=== PATIENT | female | born 1960 | race Caucasian/White ===

== ENCOUNTER → 2017-03-02 | Day surgery (SDC) | payer OTHER ==
[~2017-03-02] MED LIST: Acetaminophen/HYDROcodone 325-5 MG Tab PO PRN; Bacitracin Oint 1 GM U/D Packet ONE; Bacitracin Oint 28.35 GM Tube TOP ONE; Bupivacaine 0.5% 50 ML MDV ONE; Lidocaine 1% with EPINEPHrine 1:100,000 50 ML MDV ONE; Midazolam 1 MG/ML 2 ML SDV ONE; Morphine 2 MG/ML Syringe IVPUSH PRN; Propofol 200 MG/20 ML SDV ONE; Sodium Chloride 0.9% 1,000 ML IV SCH; ceFAZolin 2 GM in Premix Bag 1 BAG IV ONE; ceFAZolin 2 GM in Sodium Chloride 0.9% 50 ML IV ONE; fentaNYL 100 MCG/2 ML SDV ONE
[2017-03-02 17:38] VITALS: BP 126/59
--- NOTE | 2017-03-05 08:43 | OR ---
DATE OF PROCEDURE: 03/02/2017 PROCEDURE: Exploration of traumatic injury, right leg, calf (). FINDINGS: Large amount of fluid collection consistent with old hematoma. PREOPERATIVE DIAGNOSIS: Traumatic injury to right leg requiring evaluation. POSTOPERATIVE DIAGNOSIS: Traumatic injury to right leg requiring evaluation. RISKS: Risks, benefits, alternatives, limitations including, but not limited to infection, bleeding, and chronic wound formation were explained to the patient. PROCEDURE: The patient was placed in supine position. The traumatic entry point was identified and this appeared to be healing well. 1 cm below this, a single mahsa was created in the skin approximately 1 cm size. A Brittani was introduced at this area and this was approximately 11 cm x 8 cm filled with old fluid. This was cultured, suctioned, and aspirated. Suction device was used to remove the remainder of this. The patient had couple of areas of what was mostly likely calcified fat. This was noted within the range of medial to the incision. These were left in place once ischemic. A 10 flat Brian-Timmons was then placed within the cavity itself, was sutured into place and dressings were applied. As far as the entry point of the wound, this was controlled with bacitracin and Xeroform. Dressings were applied. The patient tolerated the procedure well. Duke Walker MD /[id number]
== END ==
LOC: JP.SDS 10:24
PROVIDERS: ATTEND Surgery
DX: S89.91XD Unspecified injury of right lower leg, subsequent encounter (principal); Z88.8 Allergy status to other drugs, medicaments and biological substances
CPT/HCPCS: 20103; 87070; 87075; 87205; A9270; J0690; J2250; J2270; J2704; J3010; J7040; 87077; 87186

== ENCOUNTER 2017-03-30 10:47 | Day surgery (SDC) | payer OTHER ==
[2017-03-30] MEDS ORDERED: Sodium Chloride 0.9% 1,000 ML IV SCH (11:30)
[2017-03-30] MEDS ORDERED: ceFAZolin 2 GM in Sodium Chloride 0.9% 50 ML IV ONE (11:30)
[2017-03-30] MEDS ORDERED: Lidocaine 1% with EPINEPHrine 1:100,000 50 ML MDV ONE (11:56)
[2017-03-30] MEDS ORDERED: Bupivacaine 0.5% 50 ML MDV ONE (11:56)
[2017-03-30] MEDS ORDERED: Propofol 200 MG/20 ML SDV ONE (12:46)
[2017-03-30] MEDS ORDERED: Acetaminophen/HYDROcodone 325-5 MG Tab PO PRN (13:53)
[2017-03-30] MEDS ORDERED: Morphine 2 MG/ML Syringe IV PRN (14:00)
[2017-03-30 14:49] VITALS: BP 145/85
--- NOTE | 2017-03-30 15:04 | OR ---
DATE OF PROCEDURE: 03/30/2017 PROCEDURE: Ultrasound-guided drainage of infected hematoma. COMPLICATIONS: None. 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 ANESTHESIA: MAC/local. INDICATIONS: A pleasant 57-year-old female who has a traumatic injury of her right leg. This was previously drained. The drain was removed, and the patient now has recurrent pain and fever. FINDINGS: Consistent with infected hematoma. RISKS: Risks, benefits, alternatives, and limitations including but not limited to infection, bleeding, and recurrent surgery were explained to the patient, who wished to proceed. PROCEDURE IN DETAIL: The patient was placed in supine position. The right leg was prepped and draped. The skin was anesthetized with lidocaine. Using an 11 megahertz ultrasound probe, the area identified and the 7 cm pocket was identified. An 18-gauge needle was then advanced into this and fluid was drawn and sent for culture. A pigtail catheter was then introduced and was able to be placed on the first pass without difficulty. This was then sutured into place. Prior to this, the cavity was irrigated thoroughly multiple times with normal saline. The patient tolerated the procedure well. Duke Walker MD /[id number]
== END 2017-03-30 15:00 | disposition home or self-care (01) ==
LOC: JP.SDS 10:47
PROVIDERS: ATTEND Surgery
DX: T81.4XXA Infection following a procedure, initial encounter (principal); I10 Essential (primary) hypertension; E03.9 Hypothyroidism, unspecified; E66.9 Obesity, unspecified; Z68.30 Body mass index [BMI] 30.0-30.9, adult; Z98.890 Other specified postprocedural states; Z88.8 Allergy status to other drugs, medicaments and biological substances
CPT/HCPCS: 10030; 76998; 87070; 87075; 87077; 87186; 87205; A9270; J0690; J2270; J2704; J7040; J7050

== ENCOUNTER 2017-08-27 20:46 | Emergency (ER) | payer OTHER ==
[2017-08-27] MEDS ORDERED: LORazepam 0.5 MG Tab PO ONE (20:57)
[2017-08-27 21:44] VITALS: BP 140/63
--- NOTE | 2017-08-27 21:58 | EDM.PDOC ---
ED HPI GENERAL MEDICAL PROBLEM - General Chief Complaint: Cardiovascular Problem Stated Complaint: RACING HEART/HIGH PULSE Time Seen by Provider: 08/27/17 21:58 Source of Information: Reports: Patient History Limitations: Reports: No Limitations - History of Present Illness INITIAL COMMENTS - FREE TEXT/NARRATIVE: pt was lying down and she turned to her rt side. She felt like her heart was rapid and irregular. She then felt very anxious with the rapid heart rate. She was mildly sob. Onset: Today, Sudden Duration: Minutes:, Other ( The episode lasted for about 20-30 minutes. ) Location: Reports: Chest Associated Symptoms: Reports: Weakness, Other ( anxiety with a rapid heart rate. 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: Aspirin, Other (see below) Other Treatments GREEN CHAIN OFFBEARER: lisinopril - Related Data Allergies Allergy/AdvReac Type Severity Reaction Status Date / Time ranitidine HCl [From Zantac] Allergy Severe Difficulty Verified 08/27/17 21:03 Breathing caffeine Allergy Tachycardia Verified 08/27/17 21:03 Home Meds: Home Meds Soy Isoflavone [Soy Isoflavones] 40 mg PO DAILY 04/12/15 [History] [place] Wort 150 mg PO DAILY 04/12/15 [History] Aspirin [Halfprin] 81 mg PO DAILY 03/02/17 [History] Hydrochlorothiazide 25 mg PO DAILY 03/02/17 [History] Lisinopril 10 mg PO DAILY 04/09/17 [History] Levothyroxine 175 mcg PO DAILY 08/27/17 [History] Past Medical History HEENT History: Reports: Impaired Vision Cardiovascular History: Reports: Heart Murmur, Hypertension Respiratory History: Reports: Bronchitis, Recurrent, Pneumonia, Recurrent Gastrointestinal History: Reports: Other (See Below) Other Gastrointestinal History: "gallbladder attacks" 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 Musculoskeletal History: Reports: Osteoporosis Psychiatric History: Reports: Panic Attack Endocrine/Metabolic History: Reports: Hypothyroidism, Obesity/BMI 30+ Hematologic History: Reports: None Immunologic History: Reports: None Oncologic (Cancer) History: Reports: None Dermatologic History: Reports: Psoriasis - Infectious Disease History Infectious Disease History: Reports: Chicken Pox - Past Surgical History Head Surgeries/Procedures: Reports: None HEENT Surgical History: Reports: Oral Surgery Cardiovascular Surgical History: Reports: None Respiratory Surgical History: Reports: None GI Surgical History: Reports: None Female Surgical History: Reports: None Endocrine Surgical History: Reports: None Other Endocrine Surgeries/Procedures: radiation via pill form february 2015 Musculoskeletal Surgical History: Reports: Other (See Below) Other Musculoskeletal Surgeries/Procedures:: arthritis in right knee and hips Oncologic Surgical History: Reports: None Dermatological Surgical History: Reports: None Social & Family History - Family History Family Medical History: Noncontributory - Tobacco Use Smoking Status *Q: Never Smoker Second Hand Smoke Exposure: No - Caffeine Use Caffeine Use: Reports: None - Alcohol Use Days Per Week of Alcohol Use: 0 - Recreational Drug Use Recreational Drug Use: No ED ROS GENERAL - Review of Systems Review Of Systems: See Below Constitutional: Reports: No Symptoms HEENT: Reports: No Symptoms Respiratory: Reports: Shortness of Breath Cardiovascular: Reports: Palpitations, Other (pt felt like her heart was rapid and irregular. ) GI/Abdominal: Reports: No Symptoms : Reports: No Symptoms Musculoskeletal: Reports: No Symptoms Skin: Reports: No Symptoms ED EXAM, GENERAL - Physical Exam Exam: See Below Free Text/Narrative:: pt arrived feeling anxious because she had a rapid irregular heartrate at home. Exam Limited By: No Limitations General Appearance: Alert, Anxious Ears: Normal TMs Nose: Normal Inspection Throat/Mouth: Normal Inspection Head: Atraumatic Neck: Normal Inspection Respiratory/Chest: No Respiratory Distress Cardiovascular: Regular Rate, Rhythm, Other ( rate was 80 when she got hooked up. ) GI/Abdominal: Soft, Non-Tender (Female) Exam: Deferred Rectal (Female) Exam: Deferred, Other (pt does feel she is constipated. ) Back Exam: Normal Inspection Extremities: Normal Inspection Neurological: Alert, Oriented, Normal Cognition Psychiatric: Anxious Course - Vital Signs Last Recorded V/S: Last Vital Signs Temp 36.4 C 08/27/17 20:56 Pulse 74 08/27/17 21:35 Resp 14 08/27/17 21:35 BP 140/63 08/27/17 21:35 Pulse Ox 99 08/27/17 21:35 - Orders/Labs/Meds Orders: Active Orders 24 hr Category Date Time Status EKG Documentation Completion [RC] ASDIRECTED Care 08/27/17 20:56 Active UA W/MICROSCOPIC [URIN] Urgent Lab 08/27/17 20:55 Ordered EKG 12 Lead [EK] Routine Ther 08/27/17 20:56 Ordered Labs: Laboratory Tests 08/27/17 08/27/17 08/27/17 Range/Units 21:07 21:07 21:07 WBC 9.8 (4.5-11.0) K/uL RBC 4.88 (3.30-5.50) M/uL Hgb 14.4 (12.0-15.0) g/dL Hct 42.4 (36.0-48.0) % MCV 87 (80-98) fL MCH 30 (27-31) pg MCHC 34 (32-36) % Plt Count 273 (150-400) K/uL Neut % (Auto) 58 (36-66) % Lymph % (Auto) 30 (24-44) % Keith % (Auto) 8 H (2-6) % Eos % (Auto) 3 (2-4) % Baso % (Auto) 1 (0-1) % Sodium 142 (140-148) mmol/L Potassium 3.5 L (3.6-5.2) mmol/L Chloride 103 (100-108) mmol/L Carbon Dioxide 30 (21-32) mmol/L Anion Gap 12.5 (5.0-14.0) mmol/L BUN 16 (7-18) mg/dL Creatinine 1.0 (0.6-1.0) mg/dL Est Cr Clr Drug Dosing 62.23 mL/min Estimated GFR (MDRD) 57 L (>60) Glucose 127 H (74-106) mg/dL Calcium 9.1 (8.5-10.1) mg/dL Total Bilirubin 0.3 (0.2-1.0) mg/dL AST 21 (15-37) U/L ALT 35 (12-78) U/L Alkaline Phosphatase 77 (46-116) U/L Troponin I (0.000-0.056) ng/mL Total Protein 7.4 (6.4-8.2) g/dL Albumin 3.5 (3.4-5.0) g/dL Globulin 3.9 H (2.3-3.5) g/dL Albumin/Globulin Ratio 0.9 L (1.2-2.2) TSH, Ultra Sensitive 4.259 H (0.358-3.740) uIU/mL 08/27/17 Range/Units 21:07 WBC (4.5-11.0) K/uL RBC (3.30-5.50) M/uL Hgb (12.0-15.0) g/dL Hct (36.0-48.0) % MCV (80-98) fL MCH (27-31) pg MCHC (32-36) % Plt Count (150-400) K/uL Neut % (Auto) (36-66) % Lymph % (Auto) (24-44) % Keith % (Auto) (2-6) % Eos % (Auto) (2-4) % Baso % (Auto) (0-1) % Sodium (140-148) mmol/L Potassium (3.6-5.2) mmol/L Chloride (100-108) mmol/L Carbon Dioxide (21-32) mmol/L Anion Gap (5.0-14.0) mmol/L BUN (7-18) mg/dL Creatinine (0.6-1.0) mg/dL Est Cr Clr Drug Dosing mL/min Estimated GFR (MDRD) (>60) Glucose (74-106) mg/dL Calcium (8.5-10.1) mg/dL Total Bilirubin (0.2-1.0) mg/dL AST (15-37) U/L ALT (12-78) U/L Alkaline Phosphatase (46-116) U/L Troponin I < 0.017 (0.000-0.056) ng/mL Total Protein (6.4-8.2) g/dL Albumin (3.4-5.0) g/dL Globulin (2.3-3.5) g/dL Albumin/Globulin Ratio (1.2-2.2) TSH, Ultra Sensitive (0.358-3.740) uIU/mL Meds: Medications Discontinued Medications Generic Name Dose Route Start Last Admin Trade Name Freq PRN Reason Stop Dose Admin Lorazepam 0.5 mg 08/27/17 20:57 08/27/17 21:06 Ativan PO 08/27/17 20:58 0.5 mg ONETIME ONE Administration - Re-Assessments/Exams Free Text/Narrative Re-Assessment/Exam: 08/27/17 21:55 pt had a sinus rhytm of 80 on arrival. Her pulse was checked in the lobby and was more rapid and irregular. She did not have chest pain. She did feel very anxious. Departure - Departure Time of Disposition: 21:56 Disposition: Home, Self-Care 01 Condition: Fair Clinical Impression: Atrial arrhythmia, Hypothyroidism Referrals: Kierra Devine CNM [Primary Care Provider] - Forms: ED Department Discharge Care Plan Goals: high k diet, cont thyroid dosAge the same, push fluids, rtc if further problems. - My Orders Last 24 Hours: My Active Orders 08/27/17 20:55 UA W/MICROSCOPIC [URIN] Urgent 08/27/17 20:56 EKG Documentation Completion [RC] ASDIRECTED EKG 12 Lead [EK] Routine - Assessment/Plan Last 24 Hours: My Active Orders 08/27/17 20:55 UA W/MICROSCOPIC [URIN] Urgent 08/27/17 20:56 EKG Documentation Completion [RC] ASDIRECTED EKG 12 Lead [EK] Routine
== END 2017-08-27 22:29 | disposition home or self-care (01) ==
LOC: JP.ED 20:46
DX: I49.9 Cardiac arrhythmia, unspecified (principal); E03.9 Hypothyroidism, unspecified; I10 Essential (primary) hypertension; E66.9 Obesity, unspecified; Z91.018 Allergy to other foods; Z88.8 Allergy status to other drugs, medicaments and biological substances; Z79.899 Other long term (current) drug therapy; Z79.82 Long term (current) use of aspirin
CPT/HCPCS: 36415; 80053; 84443; 84484; 85025; 93005; 99285; A9270

== ENCOUNTER 2018-07-25 14:24 | Emergency (ER) | payer OTHER ==
[2018-07-25 14:45] VITALS: BP 150/77
[2018-07-25] MEDS ORDERED: Lidocaine 1% with EPINEPHrine 1:100,000 50 ML MDV SUBCUT STA (15:21)
[2018-07-25] MEDS ORDERED: Bacitracin Oint 28.35 GM Tube TOP STA (15:21)
[2018-07-25] MEDS ORDERED: Bacitracin Oint 1 GM U/D Packet TOP ONE (15:29)
--- NOTE | 2018-07-25 15:30 | EDM.PDOC ---
<Ila Prescott - Last Filed: 07/25/18 15:55> ED HPI GENERAL MEDICAL PROBLEM - General Chief Complaint: Lower Extremity Injury/Pain Stated Complaint: LEG BLEEDING Time Seen by Provider: 07/25/18 15:20 Source of Information: Reports: Patient History Limitations: Reports: No Limitations - History of Present Illness INITIAL COMMENTS - FREE TEXT/NARRATIVE: Mary Carmen Perla is a 58 year old female who reports to the E.D. with concerns of bleeding from her left lower extremity. She stated 1 day ago she noticed a white head on the lower aspect of her lateral, left leg. She states a history of winter psoriasis so at times it is pretty itchy. Today she was at the hair salon and itched her lower leg. Then she noticed blood spurting out and came to the ER. Further symptoms are denied at this time. denies Pain Score (Numeric/FACES): 0 - Related Data Allergies Allergy/AdvReac Type Severity Reaction Status Date / Time ranitidine HCl [From Zantac] Allergy Severe Difficulty Verified 07/25/18 14:53 Breathing caffeine Allergy Tachycardia Verified 07/25/18 14:53 Home Meds: Home Meds [place]'s Wort 150 mg PO DAILY 04/12/15 [History] Aspirin [Halfprin] 81 mg PO DAILY 03/02/17 [History] Hydrochlorothiazide 25 mg PO DAILY 03/02/17 [History] Levothyroxine 175 mcg PO DAILY 08/27/17 [History] Metoprolol Tartrate [Lopressor] 50 mg PO DAILY 07/25/18 [History] Past Medical History HEENT History: Reports: Impaired Vision Cardiovascular History: Reports: Heart Murmur, Hypertension Respiratory History: Reports: Bronchitis, Recurrent, Pneumonia, Recurrent Gastrointestinal History: Reports: Other (See Below) Other Gastrointestinal History: "gallbladder attacks" 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 Musculoskeletal History: Reports: Osteoporosis Psychiatric History: Reports: Panic Attack Endocrine/Metabolic History: Reports: Hypothyroidism, Obesity/BMI 30+ Hematologic History: Reports: None Immunologic History: Reports: None Oncologic (Cancer) History: Reports: None Dermatologic History: Reports: Psoriasis - Infectious Disease History Infectious Disease History: Reports: Chicken Pox - Past Surgical History Head Surgeries/Procedures: Reports: None HEENT Surgical History: Reports: Oral Surgery Cardiovascular Surgical History: Reports: None Respiratory Surgical History: Reports: None GI Surgical History: Reports: None Female Surgical History: Reports: None Endocrine Surgical History: Reports: None Other Endocrine Surgeries/Procedures: radiation via pill form february 2015 Musculoskeletal Surgical History: Reports: Other (See Below) Other Musculoskeletal Surgeries/Procedures:: arthritis in right knee and hips Oncologic Surgical History: Reports: None Dermatological Surgical History: Reports: None Social & Family History - Family History Family Medical History: Noncontributory - Tobacco Use Smoking Status *Q: Never Smoker Second Hand Smoke Exposure: No - Caffeine Use Caffeine Use: Reports: None - Recreational Drug Use Recreational Drug Use: No Review of Systems - Review of Systems Review Of Systems: ROS reveals no pertinent complaints other than HPI. ED EXAM, GENERAL - Physical Exam Exam: See Below Exam Limited By: No Limitations General Appearance: Alert, No Apparent Distress Respiratory/Chest: No Respiratory Distress Neurological: Alert, Oriented Psychiatric: Normal Affect Skin Exam: Warm, Other (Left, lateral, lower extremity reveals a wound that is actively bleeding, 0.1 CM in diameter ) ED TRAUMA EXTREMITY PROCEDURES - Laceration/Wound Repair Left Lower Leg Lac/Wound Length In cm: 0.1 Appearance: Subcutaneous Distal NVT: Neuro & Vascular Intact Anesthetic Type: Local Local Anesthesia - Lidocaine (Xylocaine): 1% with EPI Local Anesthetic Volume: Other (10 cc) Skin Prep: Chlorhexidine (Hibiciens) Closed With: Sutures Suture Size: 4-0 # of Sutures: 2 Suture Type: Other (1 figure 8, 1 interrupted ) Course - Vital Signs Last Recorded V/S: Last Vital Signs Temp 99.2 F 07/25/18 15:00 Pulse 71 07/25/18 15:00 Resp 18 07/25/18 15:00 BP 150/77 H 07/25/18 15:00 Pulse Ox 93 L 07/25/18 15:00 - Orders/Labs/Meds Meds: Medications Discontinued Medications Generic Name Dose Route Start Last Admin Trade Name Joseq PRN Reason Stop Dose Admin Bacitracin 1 gm 07/25/18 15:21 Bacitracin Oint TOP 07/25/18 15:22 NOW STA Bacitracin 1 dose 07/25/18 15:29 07/25/18 15:32 Bacitracin Oint 1 Gm TOP 07/25/18 15:30 1 dose ONETIME ONE Administration Lidocaine/Epinephrine 1 ml 07/25/18 15:21 07/25/18 15:33 Xylocaine 1% With Epinephrine 1:100,000 SUBCUT 07/25/18 15:22 1 ml NOW STA Administration Departure - Departure Disposition: Home, Self-Care 01 Clinical Impression: Laceration of left lower extremity Qualifiers: Encounter type: initial encounter Qualified Code(s): S81.812A - Laceration without foreign body, left lower leg, initial encounter - Discharge Information Referrals: PCP,None [Primary Care Provider] - Forms: ED Department Discharge Additional Instructions: Suture removal in 10 days, follow wound care instruction sheet, tetanus was updated in 2013 return to the clinic or emergency department for suture removal <Kobe Alejandro - Last Filed: 07/25/18 16:02> ED EXAM, GENERAL - Physical Exam Free Text/Narrative:: Agree with below ED TRAUMA EXTREMITY PROCEDURES - Laceration/Wound Repair Left Lower Leg Local Anesthetic Volume: 1cc Saline Irrigation (cc's): 10 Exploration/Debridement/Repair: Wound Explored, In a Bloodless Field, Explored to Base Suture Type: Other Tetanus Status Addressed: Yes (2013) Complications: No Departure - Departure Time of Disposition: 16:01 Condition: Fair - Assessment/Plan Plan: Assessment Acuity = acute Site and laterality = 0.1 cm laceration lower left extremity Etiology = secondary to use trauma with the itch scratch cycle Manifestations = none Location of injury = Home Lab values = none Plan Suture removal in 10 days follow-up primary care for suture removal or return to the emergency department follow wound care instruction sheet This note was dictated using [employer] voice recognition software please call with any questions on syntax or grammar.
== END 2018-07-25 16:15 | disposition home or self-care (01) ==
LOC: JP.ED 14:24
DX: S81.812A Laceration without foreign body, left lower leg, initial encounter (principal); I10 Essential (primary) hypertension; E03.9 Hypothyroidism, unspecified; Z79.899 Other long term (current) drug therapy; Z79.82 Long term (current) use of aspirin; Z88.8 Allergy status to other drugs, medicaments and biological substances; Z91.018 Allergy to other foods; W22.8XXA Striking against or struck by other objects, initial encounter
CPT/HCPCS: 12001; 99282; A9270

== ENCOUNTER 2019-06-11 01:20 | Emergency (ER) | payer OTHER ==
[2019-06-11] MEDS ORDERED: Meclizine 25 MG Tab PO ONE (01:55)
--- NOTE | 2019-06-11 02:03 | EDM.PDOC ---
ED HPI GENERAL MEDICAL PROBLEM - General Chief Complaint: General Stated Complaint: FEELING FAINT Time Seen by Provider: 06/11/19 01:45 Source of Information: Reports: Patient, Family, RN Notes Reviewed History Limitations: Reports: No Limitations - History of Present Illness INITIAL COMMENTS - FREE TEXT/NARRATIVE: 59-year-old female presents emergency department a complaint of dizziness. She describes her dizziness as she feels unsteady on her feet and feels like she is going to fall even though she denies any weakness in her legs. States the room is not spinning but does not make any difference when she closes her eyes. She does feel nauseated no vomiting denies any neurologic symptoms - Related Data Allergies Allergy/AdvReac Type Severity Reaction Status Date / Time ranitidine HCl [From Zantac] Allergy Severe Difficulty Verified 06/11/19 01:27 Breathing caffeine Allergy Tachycardia Verified 06/11/19 01:27 Home Meds: Home Meds Nicholls's Wort 150 mg PO DAILY 04/12/15 [History] Aspirin [Halfprin] 81 mg PO DAILY 03/02/17 [History] Hydrochlorothiazide 25 mg PO DAILY 03/02/17 [History] Levothyroxine 175 mcg PO DAILY 08/27/17 [History] Metoprolol Tartrate [Lopressor] 50 mg PO DAILY 07/25/18 [History] Rosuvastatin Calcium 10 mg PO DAILY 06/11/19 [History] Past Medical History HEENT History: Reports: Impaired Vision Cardiovascular History: Reports: Afib, Heart Murmur, High Cholesterol, Hypertension Respiratory History: Reports: Bronchitis, Recurrent, Pneumonia, Recurrent Gastrointestinal History: Reports: Chronic Constipation, Other (See Below) Other Gastrointestinal History: "gallbladder attacks" Musculoskeletal History: Reports: Osteoporosis Psychiatric History: Reports: Depression, Panic Attack Endocrine/Metabolic History: Reports: Hypothyroidism, Obesity/BMI 30+ Hematologic History: Reports: None Immunologic History: Reports: None Oncologic (Cancer) History: Reports: None Dermatologic History: Reports: Psoriasis - Infectious Disease History Infectious Disease History: Reports: Chicken Pox - Past Surgical History Head Surgeries/Procedures: Reports: None HEENT Surgical History: Reports: Oral Surgery Cardiovascular Surgical History: Reports: None Respiratory Surgical History: Reports: None GI Surgical History: Reports: None Female Surgical History: Reports: None Endocrine Surgical History: Reports: None Other Endocrine Surgeries/Procedures: radiation via pill form february 2015 Musculoskeletal Surgical History: Reports: Other (See Below) Other Musculoskeletal Surgeries/Procedures:: arthritis in right knee and hips, rt lower leg surgery, left foot surgery Oncologic Surgical History: Reports: None Dermatological Surgical History: Reports: None Social & Family History - Family History Family Medical History: Noncontributory - Tobacco Use Smoking Status *Q: Never Smoker Second Hand Smoke Exposure: No - Caffeine Use Caffeine Use: Reports: None - Recreational Drug Use Recreational Drug Use: No ED ROS GENERAL - Review of Systems Review Of Systems: See Below Constitutional: Denies: Weakness HEENT: Reports: No Symptoms Respiratory: Reports: No Symptoms Cardiovascular: Reports: Lightheadedness GI/Abdominal: Reports: Nausea. Denies: Abdominal Pain, Vomiting : Reports: No Symptoms Musculoskeletal: Reports: No Symptoms Skin: Reports: No Symptoms Neurological: Reports: Dizziness ED EXAM, GENERAL - Physical Exam Exam: See Below Free Text/Narrative:: General: Female, not in any distress, alert and oriented x3 HEENT: head is atraumatic normocephalic, eyes pupils equal round reactive to light, sclera clear no conjunctivitis appreciated extraocular eye movements intact. Ears tympanic membranes clear and marshall landmarks and light reflex are present bilaterally canals are clear. Nose no septal deviation, nares are clear, no blood present. Mouth mucosa is moist and pink no erythema or exudate noted in soft palate, tongue is midline uvula is midline, dentition is intact. Neck: Supple no thyromegaly no tracheal deviation. Nodes: Cervical nodes subclavicular nodes nontender no palpable lymphadenopathy noted. Head impulse test: Negative loss of fixation with corrective saccades when head turned to the bilateral Nystagmus: unidirectional, horizontal 0-beating nystagmus Skew deviation: grossly absent Lungs: clear to auscultation bilaterally with symmetrical respirations, no adventitious noise appreciated. CV: Regular rate and rhythm S1 and S2 appreciated grade 3 out of 6 systolic ejection murmur best appreciated left sternal border, no rubs or gallops noted. Abdomen: Soft, nontender, no palpable masses or organomegaly appreciated, no distention no guarding bowel sounds are present, [scars ]. Neuro: Cranial nerves II test with pupillary light reflex 6 mm to 3 mm bilaterally, CN III test pupillary constriction, lid elevation and eye abduction bilaterally, CN IV downward movement of eyes bilaterally, CN V good jaw movement, CN lateral deviation of the eyes bilaterally to finger movement , CN VII symmetrical smile shows teeth without difficulty, CN VIII pass finger rub to ears bilaterally, CN IX adequate voice and tone, CN X adequate voice and tone no difficulty swallowing, CN XI can shrug shoulders without difficulty, CN XII can stick tongue out without difficulty, cranial nerves II to XII intact as tested, Skin: Warm and dry, intact Extremities: No lower extremity edema appreciated, pedal pulse is +2. Course - Vital Signs Last Recorded V/S: Last Vital Signs Temp 98.2 F 06/11/19 01:31 Pulse 53 L 06/11/19 02:12 Resp 14 06/11/19 02:12 BP 125/53 L 06/11/19 02:12 Pulse Ox 96 06/11/19 02:12 - Orders/Labs/Meds Orders: Active Orders 24 hr Category Date Time Status Cardiac Monitoring [RC] .As Directed Care 06/11/19 01:54 Active EKG Documentation Completion [RC] ASDIRECTED Care 06/11/19 01:55 Active EKG 12 Lead [EK] Stat Ther 06/11/19 01:55 Ordered Labs: Laboratory Tests 06/11/19 06/11/19 06/11/19 Range/Units 01:40 01:40 01:40 WBC 9.3 (4.5-11.0) K/uL RBC 4.77 (3.30-5.50) M/uL Hgb 14.6 (12.0-15.0) g/dL Hct 43.1 (36.0-48.0) % MCV 90 (80-98) fL MCH 31 (27-31) pg MCHC 34 (32-36) % Plt Count 269 (150-400) K/uL Neut % (Auto) 62 (36-66) % Lymph % (Auto) 26 (24-44) % Saline % (Auto) 9 H (2-6) % Eos % (Auto) 2 (2-4) % Baso % (Auto) 0 (0-1) % D-Dimer, Quantitative < 100 (0.0-400.0) ng/mL Sodium 138 L (140-148) mmol/L Potassium 3.4 L (3.6-5.2) mmol/L Chloride 101 (100-108) mmol/L Carbon Dioxide 30 (21-32) mmol/L Anion Gap 10.4 (5.0-14.0) mmol/L BUN 14 (7-18) mg/dL Creatinine 0.9 (0.6-1.0) mg/dL Est Cr Clr Drug Dosing 68.73 mL/min Estimated GFR (MDRD) > 60 (>60) Glucose 115 H (74-106) mg/dL Calcium 8.6 (8.5-10.1) mg/dL Total Bilirubin 0.4 (0.2-1.0) mg/dL AST 19 (15-37) U/L ALT 26 (12-78) U/L Alkaline Phosphatase 77 (46-116) U/L Troponin I < 0.017 (0.000-0.056) ng/mL Total Protein 7.1 (6.4-8.2) g/dL Albumin 3.4 (3.4-5.0) g/dL Globulin 3.7 H (2.3-3.5) g/dL Albumin/Globulin Ratio 0.9 L (1.2-2.2) Meds: Medications Discontinued Medications Generic Name Dose Route Start Last Admin Trade Name Freq PRN Reason Stop Dose Admin Meclizine HCl 25 mg 06/11/19 01:55 06/11/19 02:03 Antivert PO 06/11/19 01:56 25 mg ONETIME ONE Administration Departure - Departure Time of Disposition: 02:37 Disposition: Home, Self-Care 01 Condition: Fair Clinical Impression: Dizzy - Discharge Information Instructions: Vertigo, [id number] Referrals: Kierra Devine CNM [Primary Care Provider] - Forms: ED Department Discharge Additional Instructions: Continue with your regular medications, please followup with your primary care provider in 2-3 days if not better, please call return to the emergency department with worsening of symptoms. Sepsis Event Note - Evaluation Sepsis Screening Result: No Definite Risk - Focused Exam Vital Signs: Vital Signs Temp Pulse Resp BP BP Pulse Ox 06/11/19 02:12 53 L 14 125/53 L 96 06/11/19 01:31 98.2 F 60 13 167/78 H 98 06/11/19 01:30 98.2 F 60 13 167/78 H 98 Date Exam was Performed: 06/11/19 Time Exam was Performed: 02:36 - My Orders Last 24 Hours: My Active Orders 06/11/19 01:54 Cardiac Monitoring [RC] .As Directed 06/11/19 01:55 EKG Documentation Completion [RC] ASDIRECTED EKG 12 Lead [EK] Stat - Assessment/Plan Last 24 Hours: My Active Orders 06/11/19 01:54 Cardiac Monitoring [RC] .As Directed 06/11/19 01:55 EKG Documentation Completion [RC] ASDIRECTED EKG 12 Lead [EK] Stat Plan: Assessment Acuity = acute Site and laterality = dizziness Etiology = unknown Manifestations = none Location of injury = Home Lab values = CBC, CMP, troponin, d-dimer within normal limits EKG demonstrates sinus rhythm Plan She received no relief from the meclizine provided in the ED was able to ambulate her around the ED without difficulty Romberg at that time was negative no pronator drift. I did discuss options with her which included CT scan for further evaluation she declined at this time prefer to do watchful waiting This note was dictated using [employer] voice recognition software please call with any questions on syntax or grammar.
[2019-06-11 02:13] VITALS: BP 125/53; PULSE 53
== END 2019-06-11 02:50 | disposition home or self-care (01) ==
LOC: JP.ED 01:20
DX: R42 Dizziness and giddiness (principal); I10 Essential (primary) hypertension; E03.9 Hypothyroidism, unspecified; I48.91 Unspecified atrial fibrillation; E78.00 Pure hypercholesterolemia, unspecified; E66.9 Obesity, unspecified; Z68.43 Body mass index [BMI] 50.0-59.9, adult; Z79.82 Long term (current) use of aspirin; Z79.899 Other long term (current) drug therapy; Z88.8 Allergy status to other drugs, medicaments and biological substances; Z91.018 Allergy to other foods
CPT/HCPCS: 36415; 80053; 84484; 85025; 85379; 93005; 99284; A9270

== ENCOUNTER 2020-04-03 16:33 | Emergency (ER) | payer OTHER ==
--- NOTE | 2020-04-03 17:39 | EDM.PDOC ---
<Dea Villasenor - Last Filed: 04/03/20 17:34> ED HPI GENERAL MEDICAL PROBLEM - General Chief Complaint: Respiratory Problem Stated Complaint: COVID POSITIVE?? Time Seen by Provider: 04/03/20 17:34 Source of Information: Reports: Patient History Limitations: Reports: No Limitations - History of Present Illness INITIAL COMMENTS - FREE TEXT/NARRATIVE: PT HS BEEN ILL SINCE SUN OR WITH FEVER CHILLS AND SOB. sHE IS PRONE TO GETTING PNEUMONIA pT DID HAVE A cOVID TEST DONE ON BUT IT IS NOT BACK. Onset: Gradual, Other (PT HAS BEEN SOICK SINCE SUN OR . ) Duration: Hour(s): Associated Symptoms: Reports: Fever/Chills, Headaches, Shortness of Breath - Related Data Allergies Allergy/AdvReac Type Severity Reaction Status Date / Time ranitidine HCl [From Zantac] Allergy Severe Difficulty Verified 06/11/19 01:27 Breathing caffeine Allergy Tachycardia Verified 06/11/19 01:27 Home Meds: Home Meds Silver Firs's Wort 150 mg PO DAILY 04/12/15 [History] Aspirin [Halfprin] 81 mg PO DAILY 03/02/17 [History] Hydrochlorothiazide 25 mg PO DAILY 03/02/17 [History] Levothyroxine 175 mcg PO DAILY 08/27/17 [History] Metoprolol Tartrate [Lopressor] 25 mg PO BID 07/25/18 [History] Past Medical History HEENT History: Reports: Impaired Vision Cardiovascular History: Reports: Afib, Heart Murmur, High Cholesterol, Hypertension Respiratory History: Reports: Bronchitis, Recurrent, Pneumonia, Recurrent Gastrointestinal History: Reports: Chronic Constipation, Other (See Below) Other Gastrointestinal History: "gallbladder attacks" 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 Musculoskeletal History: Reports: Osteoporosis Psychiatric History: Reports: Depression, Panic Attack Endocrine/Metabolic History: Reports: Hypothyroidism, Obesity/BMI 30+ Hematologic History: Reports: None Immunologic History: Reports: None Oncologic (Cancer) History: Reports: None Dermatologic History: Reports: Psoriasis - Infectious Disease History Infectious Disease History: Reports: Chicken Pox - Past Surgical History Head Surgeries/Procedures: Reports: None HEENT Surgical History: Reports: Oral Surgery Cardiovascular Surgical History: Reports: None Respiratory Surgical History: Reports: None GI Surgical History: Reports: None Female Surgical History: Reports: None Endocrine Surgical History: Reports: None Other Endocrine Surgeries/Procedures: radiation via pill form february 2015 Musculoskeletal Surgical History: Reports: Other (See Below) Other Musculoskeletal Surgeries/Procedures:: arthritis in right knee and hips, rt lower leg surgery, left foot surgery Oncologic Surgical History: Reports: None Dermatological Surgical History: Reports: None Social & Family History - Family History Family Medical History: No Pertinent Family History - Tobacco Use Tobacco Use Status *Q: Never Tobacco User - Caffeine Use Caffeine Use: Reports: None - Recreational Drug Use Recreational Drug Use: No ED ROS GENERAL - Review of Systems Review Of Systems: See Below Constitutional: Reports: Fever, Chills, Malaise, Decreased Appetite HEENT: Reports: Ear Pain Respiratory: Reports: Shortness of Breath, Cough Cardiovascular: Reports: No Symptoms Endocrine: Reports: No Symptoms GI/Abdominal: Reports: No Symptoms : Reports: No Symptoms Musculoskeletal: Reports: No Symptoms Skin: Reports: No Symptoms Neurological: Reports: No Symptoms Psychiatric: Reports: Anxiety ED EXAM, GENERAL - Physical Exam Exam: See Below Free Text/Narrative:: PGT ARRIVED WITH A HISTORY OF FEVER ANS SOB. sHE HAD A COVID TEST AT THE CLINIC ON BUT IT IS NOT BACK YET. sHE CONTINUES TO HAVE A FEVER. Exam Limited By: No Limitations General Appearance: Alert, Anxious, Mild Distress Ears: Normal TMs Nose: Normal Inspection Throat/Mouth: Normal Inspection Head: Atraumatic Neck: Normal Inspection Respiratory/Chest: Other (PT HAS GOOD O2 SATS. ) Cardiovascular: Regular Rate, Rhythm GI/Abdominal: Soft, Non-Tender (Female) Exam: Deferred Rectal (Female) Exam: Deferred Back Exam: Normal Inspection Extremities: Normal Inspection Neurological: Alert, Normal Cognition Departure - Departure Disposition: Home, Self-Care 01 Clinical Impression: COVID-19 - Discharge Information Instructions: COVID-19 Frequently Asked Questions Referrals: PCP,None [Primary Care Provider] - Forms: ED Department Discharge, ED Department Discharge Additional Instructions: Continue to use Tylenol or Motrin as needed for fever control, get on prophylactic vitamin D, follow-up with your primary care as needed return to the emergency department worsening of symptoms Sepsis Event Note (ED) - Evaluation Sepsis Screening Result: No Definite Risk <OfficerKobe - Last Filed: 04/03/20 20:05> Course - Vital Signs Last Recorded V/S: Last Vital Signs Temp 100.7 F H 04/03/20 19:39 Pulse 57 L 04/03/20 19:39 Resp 19 04/03/20 19:39 BP 153/73 H 04/03/20 19:39 Pulse Ox 99 04/03/20 19:39 - Orders/Labs/Meds Orders: Active Orders 24 hr Category Date Time Status Chest 1V Frontal [CR] Stat Exams 04/03/20 17:33 Taken UA W/MICROSCOPIC [URIN] Urgent Lab 04/03/20 19:38 Ordered Sodium Chloride 0.9% [Normal Saline] 1,000 ml Med 04/03/20 17:45 Active IV ASDIRECTED Medication Orders Sodium Chloride (Normal Saline) 1,000 mls @ 999 mls/hr IV ASDIRECTED GEOVANI Last Admin: 04/03/20 17:43 Dose: 999 mls/hr Documented by: HANG Labs: Laboratory Tests 04/03/20 04/03/20 04/03/20 Range/Units 17:45 17:45 18:03 WBC 4.8 (4.5-11.0) K/uL RBC 4.93 (3.30-5.50) M/uL Hgb 14.2 (12.0-15.0) g/dL Hct 44.3 (36.0-48.0) % MCV 90 (80-98) fL MCH 29 (27-31) pg MCHC 32 (32-36) % Plt Count 163 (150-400) K/uL Neut % (Auto) 78 H (36-66) % Lymph % (Auto) 12 L (24-44) % Emery % (Auto) 9 H (2-6) % Eos % (Auto) 0 L (2-4) % Baso % (Auto) 0 (0-1) % Sodium 136 L (140-148) mmol/L Potassium 3.2 L (3.6-5.2) mmol/L Chloride 99 L (100-108) mmol/L Carbon Dioxide 29 (21-32) mmol/L Anion Gap 11.2 (5.0-14.0) mmol/L BUN 12 (7-18) mg/dL Creatinine 1.0 (0.6-1.0) mg/dL Est Cr Clr Drug Dosing 61.10 mL/min Estimated GFR (MDRD) 57 L (>60) Glucose 104 (74-106) mg/dL Calcium 8.2 L (8.5-10.1) mg/dL Total Bilirubin 0.3 (0.2-1.0) mg/dL AST 30 (15-37) U/L ALT 28 (12-78) U/L Alkaline Phosphatase 65 (46-116) U/L Total Protein 6.7 (6.4-8.2) g/dL Albumin 3.1 L (3.4-5.0) g/dL Globulin 3.6 H (2.3-3.5) g/dL Albumin/Globulin Ratio 0.9 L (1.2-2.2) SARS-CoV-2 RNA (NINFA) Positive H (NEGATIVE) Meds: Medications Generic Name Dose Route Start Last Admin Trade Name Freq PRN Reason Stop Dose Admin Sodium Chloride 1,000 mls @ 999 mls/hr 04/03/20 17:45 04/03/20 17:43 Normal Saline IV 999 mls/hr ASDIRECTED GEOVANI Administration Discontinued Medications Generic Name Dose Route Start Last Admin Trade Name Freq PRN Reason Stop Dose Admin Acetaminophen 650 mg 04/03/20 18:45 04/03/20 19:35 Tylenol PO 04/03/20 18:46 650 mg NOW ONE Administration Departure - Departure Time of Disposition: 20:04 Condition: Fair Sepsis Event Note (ED) - Focused Exam Vital Signs: Vital Signs Temp Temp Pulse Resp BP Pulse Ox 04/03/20 19:39 100.7 F H 57 L 19 153/73 H 99 04/03/20 19:35 100.3 F 04/03/20 18:29 55 L 133/62 04/03/20 17:54 54 L 135/64 04/03/20 17:25 59 L 129/62 93 L 04/03/20 17:00 100.3 F 82 18 173/86 H 96 04/03/20 16:54 100.3 F 82 18 173/86 H 96 - Assessment/Plan Plan: Assessment Acuity = acute Site and laterality = Covid 19 Etiology = COVID-19 Manifestations = fever, body aches Location of injury = Home Lab values = COVID-19 was positive, CBC unremarkable sodium low at 136 consistent hyponatremia potassium low at 3.2 consistent hypokalemia Plan She never became hypoxic while in the emergency department plan is to use Tylenol Motrin vitamin D and zinc at home continue to self quarantine follow-up primary care as needed return to the emergency department worsening of symptoms This note was dictated using [employer] voice recognition software please call with any questions on syntax or grammar.
[2020-04-03] MEDS ORDERED: Sodium Chloride 0.9% 1,000 ML IV SCH (17:45)
[2020-04-03] MEDS ORDERED: Acetaminophen 325 MG Tab PO ONE (18:45)
[2020-04-03 19:44] VITALS: BP 153/73; PULSE 57
--- NOTE | 2020-04-05 09:21 | CR ---
CHEST: Portable 04/03/2020 at 5:56 PM CLINICAL HISTORY:SOB and fever COMPARISON:None FINDINGS: Heart and pulmonary vascularity are normal. There is some increase in lung markings in both lower lobes. Some of this may be chronic. Upper lung sagastume are clear. IMPRESSION: Minimal patchy density in both lower lung sagastume. Some of this may be chronic. If clinical symptomatology persists or worsens a repeat exam is recommended.
== END 2020-04-03 20:19 | disposition home or self-care (01) ==
LOC: JP.ED 16:33
DX: U07.1 COVID-19 (principal); I10 Essential (primary) hypertension; I48.91 Unspecified atrial fibrillation; E03.9 Hypothyroidism, unspecified; F32.9 Major depressive disorder, single episode, unspecified; E66.9 Obesity, unspecified; Z68.43 Body mass index [BMI] 50.0-59.9, adult; Z88.8 Allergy status to other drugs, medicaments and biological substances; Z79.82 Long term (current) use of aspirin; Z79.899 Other long term (current) drug therapy
CPT/HCPCS: 36415; 71045; 80053; 81001; 85025; 87635; 99285; A9270; J7030; U0002

== ENCOUNTER 2020-04-08 12:34 | Inpatient (IN) | payer OTHER ==
[2020-04-08] MEDS ORDERED: Acetaminophen 325 MG Tab PO PRN ×2 (13:11→17:38)
[2020-04-08] MEDS ORDERED: REMDESIVIR 200 MG in Sodium Chloride 0.9% 250 ML IV ONE ×2 (13:11→14:00)
[2020-04-08] MEDS ORDERED: Dexamethasone 4 MG/ML SDV IVPUSH SCH (13:15)
[2020-04-08] MEDS ORDERED: Sodium Chloride 0.9% 10 ML Syringe FLUSH PRN (13:21)
--- NOTE | 2020-04-08 13:22 | EDM.PDOC ---
ED HPI GENERAL MEDICAL PROBLEM - General Chief Complaint: Respiratory Problem Stated Complaint: COVID POSITIVE Time Seen by Provider: 04/08/20 12:57 Source of Information: Reports: Patient, Old Records, RN Notes Reviewed History Limitations: Reports: No Limitations - History of Present Illness INITIAL COMMENTS - FREE TEXT/NARRATIVE: 60-year-old female presents emergency department a complaint of shortness of breath, she was diagnosed COVID-19 approximately 5 days prior, started having symptoms approximately 9 days ago. At the time of diagnosis O2 saturation was 99% in the emergency department, today she presents the emergency department she is in respiratory distress she is hypoxic initial evaluation at 82% she did respond to oxygen - Related Data Allergies Allergy/AdvReac Type Severity Reaction Status Date / Time ranitidine HCl [From Zantac] Allergy Severe Difficulty Verified 06/11/19 01:27 Breathing caffeine Allergy Tachycardia Verified 06/11/19 01:27 Home Meds: Home Meds [place]'s Wort 150 mg PO DAILY 04/12/15 [History] Aspirin [Halfprin] 81 mg PO DAILY 03/02/17 [History] Hydrochlorothiazide 25 mg PO DAILY 03/02/17 [History] Levothyroxine 175 mcg PO DAILY 08/27/17 [History] Metoprolol Tartrate [Lopressor] 25 mg PO BID 07/25/18 [History] Past Medical History HEENT History: Reports: Impaired Vision Cardiovascular History: Reports: Afib, Heart Murmur, High Cholesterol, Hypertension Respiratory History: Reports: Bronchitis, Recurrent, Pneumonia, Recurrent Gastrointestinal History: Reports: Chronic Constipation, Other (See Below) Other Gastrointestinal History: "gallbladder attacks" Musculoskeletal History: Reports: Osteoporosis Psychiatric History: Reports: Depression, Panic Attack Endocrine/Metabolic History: Reports: Hypothyroidism, Obesity/BMI 30+ Immunologic History: Reports: None Oncologic (Cancer) History: Reports: None Dermatologic History: Reports: Psoriasis - Infectious Disease History Infectious Disease History: Reports: Chicken Pox - Past Surgical History Head Surgeries/Procedures: Reports: None HEENT Surgical History: Reports: Oral Surgery Cardiovascular Surgical History: Reports: None Respiratory Surgical History: Reports: None GI Surgical History: Reports: None Female Surgical History: Reports: None Endocrine Surgical History: Reports: None Other Endocrine Surgeries/Procedures: radiation via pill form february 2015 Musculoskeletal Surgical History: Reports: Other (See Below) Other Musculoskeletal Surgeries/Procedures:: arthritis in right knee and hips, rt lower leg surgery, left foot surgery Oncologic Surgical History: Reports: None Dermatological Surgical History: Reports: None Social & Family History - Family History Family Medical History: No Pertinent Family History - Tobacco Use Tobacco Use Status *Q: Unknown Ever Used Tobacco - Caffeine Use Caffeine Use: Reports: None ED ROS GENERAL - Review of Systems Review Of Systems: See Below Constitutional: Reports: Fever, Chills, Weakness HEENT: Reports: No Symptoms Respiratory: Reports: Shortness of Breath, Cough. Denies: Sputum Cardiovascular: Reports: Dyspnea on Exertion GI/Abdominal: Reports: No Symptoms : Reports: No Symptoms ED EXAM, GENERAL - Physical Exam Exam: See Below Exam Limited By: Respiratory Distress General Appearance: Alert, Moderate Distress Respiratory/Chest: Lungs Clear, No Accessory Muscle Use, Respiratory Distress. No: Rhonchi, Wheezing Cardiovascular: Regular Rate, Rhythm, No Murmur GI/Abdominal: Soft, Non-Tender Course - Vital Signs Last Recorded V/S: Last Vital Signs Temp 99 F 04/08/20 12:45 Pulse 80 04/08/20 12:45 Resp 22 H 04/08/20 12:45 BP 130/70 04/08/20 12:45 Pulse Ox 82 L 04/08/20 12:45 - Orders/Labs/Meds Orders: Active Orders 24 hr Category Date Time Status Nurse Communication: Isolation [RC] ASDIRECTED Care 04/08/20 13:12 Active Peripheral IV Care [RC] . DIRECTED Care 04/08/20 13:21 Active Acetaminophen [TylenoL] Med 04/08/20 13:11 Active 650 mg PO Q4H PRN Sodium Chloride 0.9% [Saline Flush] Med 04/08/20 13:21 Active 10 ml FLUSH ASDIRECTED PRN dexAMETHasone [Decadron] Med 04/08/20 13:15 Active 6 mg IVPUSH DAILY Isolation [COMM] Stat Oth 04/08/20 13:11 Ordered Peripheral IV Insertion Adult [OM.PC] Urgent Oth 04/08/20 13:21 Ordered Medication Orders Acetaminophen (Tylenol) 650 mg PO Q4H PRN PRN Reason: Fever Greater Than 101 Dexamethasone (Decadron) 6 mg IVPUSH DAILY GEOVANI Stop: 04/17/20 09:01 Last Admin: 04/08/20 13:43 Dose: 6 mg Documented by: [email or web address] Sodium Chloride (Saline Flush) 10 ml FLUSH ASDIRECTED PRN PRN Reason: Keep Vein Open Last Admin: 04/08/20 13:47 Dose: 10 ml Documented by: [email or web address] Labs: Laboratory Tests 04/08/20 04/08/20 04/08/20 Range/Units 13:46 13:46 13:46 WBC 4.3 L (4.5-11.0) K/uL RBC 4.86 (3.30-5.50) M/uL Hgb 14.2 (12.0-15.0) g/dL Hct 42.9 (36.0-48.0) % MCV 88 (80-98) fL MCH 29 (27-31) pg MCHC 33 (32-36) % Plt Count 156 (150-400) K/uL Neut % (Auto) 84 H (36-66) % Lymph % (Auto) 10 L (24-44) % Story % (Auto) 6 (2-6) % Eos % (Auto) 0 L (2-4) % Baso % (Auto) 0 (0-1) % D-Dimer, Quantitative 1168.88 H (0.0-500.0) ng/mL Puncture Site ABG pH (7.350-7.450) ABG pCO2 (35.0-42.0) mmHg ABG pO2 (75.0-100.0) mmHg ABG HCO3 (22.0-26.0) mmol/L ABG Total CO2 (21.0-25.0) mmol/L ABG O2 Saturation (95.0-98.0) % ABG O2 Content (15.0-23.0) %vol ABG Base Excess mm/L ABG Hemoglobin (12.0-16.0) g/dL ABG Oxyhemoglobin % ABG Carboxyhemoglobin (0.0-1.6) % ABG Methemoglobin % Andres Test O2 Delivery Device Oxygen Flow Rate L Sodium (140-148) mmol/L Potassium (3.6-5.2) mmol/L Chloride (100-108) mmol/L Carbon Dioxide (21-32) mmol/L Anion Gap (5.0-14.0) mmol/L BUN (7-18) mg/dL Creatinine (0.6-1.0) mg/dL Est Cr Clr Drug Dosing mL/min Estimated GFR (MDRD) (>60) Glucose (74-106) mg/dL Lactic Acid (0.4-2.0) mmol/L Calcium (8.5-10.1) mg/dL Ferritin 697 H (8-388) ng/ml Total Bilirubin (0.2-1.0) mg/dL Direct Bilirubin (0.0-0.2) mg/dL Indirect Bilirubin AST (15-37) U/L ALT (12-78) U/L Alkaline Phosphatase (46-116) U/L Lactate Dehydrogenase (82-234) U/L Troponin I (0.000-0.056) ng/mL C-Reactive Protein (0.0-0.3) mg/dL Total Protein (6.4-8.2) g/dL Albumin (3.4-5.0) g/dL Globulin (2.3-3.5) g/dL Albumin/Globulin Ratio (1.2-2.2) Procalcitonin ng/mL 04/08/20 04/08/20 04/08/20 Range/Units 13:46 13:46 13:46 WBC (4.5-11.0) K/uL RBC (3.30-5.50) M/uL Hgb (12.0-15.0) g/dL Hct (36.0-48.0) % MCV (80-98) fL MCH (27-31) pg MCHC (32-36) % Plt Count (150-400) K/uL Neut % (Auto) (36-66) % Lymph % (Auto) (24-44) % Story % (Auto) (2-6) % Eos % (Auto) (2-4) % Baso % (Auto) (0-1) % D-Dimer, Quantitative (0.0-500.0) ng/mL Puncture Site ABG pH (7.350-7.450) ABG pCO2 (35.0-42.0) mmHg ABG pO2 (75.0-100.0) mmHg ABG HCO3 (22.0-26.0) mmol/L ABG Total CO2 (21.0-25.0) mmol/L ABG O2 Saturation (95.0-98.0) % ABG O2 Content (15.0-23.0) %vol ABG Base Excess mm/L ABG Hemoglobin (12.0-16.0) g/dL ABG Oxyhemoglobin % ABG Carboxyhemoglobin (0.0-1.6) % ABG Methemoglobin % Andres Test O2 Delivery Device Oxygen Flow Rate L Sodium 135 L (140-148) mmol/L Potassium 3.4 L (3.6-5.2) mmol/L Chloride 96 L (100-108) mmol/L Carbon Dioxide 31 (21-32) mmol/L Anion Gap 11.4 (5.0-14.0) mmol/L BUN 11 (7-18) mg/dL Creatinine 0.8 (0.6-1.0) mg/dL Est Cr Clr Drug Dosing 76.68 mL/min Estimated GFR (MDRD) > 60 (>60) Glucose 165 H (74-106) mg/dL Lactic Acid 1.5 (0.4-2.0) mmol/L Calcium 8.2 L (8.5-10.1) mg/dL Ferritin (8-388) ng/ml Total Bilirubin 0.3 (0.2-1.0) mg/dL Direct Bilirubin 0.15 (0.0-0.2) mg/dL Indirect Bilirubin 0.15 AST 63 H D (15-37) U/L ALT 35 (12-78) U/L Alkaline Phosphatase 74 (46-116) U/L Lactate Dehydrogenase 520 H (82-234) U/L Troponin I (0.000-0.056) ng/mL C-Reactive Protein 6.42 H (0.0-0.3) mg/dL Total Protein 6.4 (6.4-8.2) g/dL Albumin 2.6 L (3.4-5.0) g/dL Globulin 3.8 H (2.3-3.5) g/dL Albumin/Globulin Ratio 0.7 L (1.2-2.2) Procalcitonin 0.06 ng/mL 04/08/20 04/08/20 Range/Units 13:46 13:56 WBC (4.5-11.0) K/uL RBC (3.30-5.50) M/uL Hgb (12.0-15.0) g/dL Hct (36.0-48.0) % MCV (80-98) fL MCH (27-31) pg MCHC (32-36) % Plt Count (150-400) K/uL Neut % (Auto) (36-66) % Lymph % (Auto) (24-44) % Story % (Auto) (2-6) % Eos % (Auto) (2-4) % Baso % (Auto) (0-1) % D-Dimer, Quantitative (0.0-500.0) ng/mL Puncture Site Lt radial ABG pH 7.436 (7.350-7.450) ABG pCO2 41.6 (35.0-42.0) mmHg ABG pO2 56.6 L (75.0-100.0) mmHg ABG HCO3 27.5 H (22.0-26.0) mmol/L ABG Total CO2 24.0 (21.0-25.0) mmol/L ABG O2 Saturation 89.6 L (95.0-98.0) % ABG O2 Content 17.8 (15.0-23.0) %vol ABG Base Excess 3.4 mm/L ABG Hemoglobin 14.4 (12.0-16.0) g/dL ABG Oxyhemoglobin 87.9 % ABG Carboxyhemoglobin 1.2 (0.0-1.6) % ABG Methemoglobin 0.7 % Andres Test Passed O2 Delivery Device Nasal cannula Oxygen Flow Rate 3.0 L Sodium (140-148) mmol/L Potassium (3.6-5.2) mmol/L Chloride (100-108) mmol/L Carbon Dioxide (21-32) mmol/L Anion Gap (5.0-14.0) mmol/L BUN (7-18) mg/dL Creatinine (0.6-1.0) mg/dL Est Cr Clr Drug Dosing mL/min Estimated GFR (MDRD) (>60) Glucose (74-106) mg/dL Lactic Acid (0.4-2.0) mmol/L Calcium (8.5-10.1) mg/dL Ferritin (8-388) ng/ml Total Bilirubin (0.2-1.0) mg/dL Direct Bilirubin (0.0-0.2) mg/dL Indirect Bilirubin AST (15-37) U/L ALT (12-78) U/L Alkaline Phosphatase (46-116) U/L Lactate Dehydrogenase (82-234) U/L Troponin I < 0.017 (0.000-0.056) ng/mL C-Reactive Protein (0.0-0.3) mg/dL Total Protein (6.4-8.2) g/dL Albumin (3.4-5.0) g/dL Globulin (2.3-3.5) g/dL Albumin/Globulin Ratio (1.2-2.2) Procalcitonin ng/mL Meds: Medications Generic Name Dose Route Start Last Admin Trade Name Freq PRN Reason Stop Dose Admin Acetaminophen 650 mg 04/08/20 13:11 Tylenol PO Q4H PRN Fever Greater Than 101 Dexamethasone 6 mg 04/08/20 13:15 04/08/20 13:43 Decadron IVPUSH 04/17/20 09:01 6 mg DAILY GEOVANI Administration Sodium Chloride 10 ml 04/08/20 13:21 04/08/20 13:47 Saline Flush FLUSH 10 ml ASDIRECTED PRN Administration Keep Vein Open Discontinued Medications Generic Name Dose Route Start Last Admin Trade Name Freq PRN Reason Stop Dose Admin Remdesivir 200 mg/ Sodium 250 mls @ 250 mls/hr 04/08/20 14:00 04/08/20 14:16 Chloride IV 04/08/20 14:59 250 mls/hr ONETIME ONE Administration Departure - Departure Time of Disposition: 15:23 Disposition: Admitted As Inpatient 67 Condition: Fair Clinical Impression: Pneumonia due to COVID-19 virus - Discharge Information Referrals: PCP,None [Primary Care Provider] - Forms: ED Department Discharge Sepsis Event Note (ED) - Evaluation Sepsis Screening Result: No Definite Risk - Focused Exam Vital Signs: Vital Signs Temp Pulse Resp BP Pulse Ox 04/08/20 12:45 99 F 80 22 H 130/70 82 L 04/08/20 12:44 99 F 80 22 H 130/70 82 L - My Orders Last 24 Hours: My Active Orders 04/08/20 13:11 Acetaminophen [TylenoL] 650 mg PO Q4H PRN Isolation [COMM] Stat 04/08/20 13:12 Nurse Communication: Isolation [RC] ASDIRECTED 04/08/20 13:15 dexAMETHasone [Decadron] 6 mg IVPUSH DAILY 04/08/20 13:21 Peripheral IV Care [RC] . DIRECTED Sodium Chloride 0.9% [Saline Flush] 10 ml FLUSH ASDIRECTED PRN Peripheral IV Insertion Adult [OM.PC] Urgent - Assessment/Plan Last 24 Hours: My Active Orders 04/08/20 13:11 Acetaminophen [TylenoL] 650 mg PO Q4H PRN Isolation [COMM] Stat 04/08/20 13:12 Nurse Communication: Isolation [RC] ASDIRECTED 04/08/20 13:15 dexAMETHasone [Decadron] 6 mg IVPUSH DAILY 04/08/20 13:21 Peripheral IV Care [RC] . DIRECTED Sodium Chloride 0.9% [Saline Flush] 10 ml FLUSH ASDIRECTED PRN Peripheral IV Insertion Adult [OM.PC] Urgent Plan: Assessment Acuity = acute Site and laterality = Covid 19 pneumonia with hypoxia Etiology = COVID-19 Manifestations = hypoxia, dyspnea Location of injury = Home Lab values = WBC low at 4.3 consistent leukopenia D-dimer elevated 1168 consistent with inflammatory marker ABG pH 7.43 PCO2 41.6 bicarb 27.5 potassium low 3.4 consistent hypokalemia lactic acid normal 1.5 ferritin elevated 697 LDH elevated at 520 troponin is negative CRP elevated at 6.42 procalcitonin 0.06 chest x-ray consistent with Covid type pattern Plan Call discussed case with hospitalist on-call at 1600 he currently agreed to come and evaluate patient emergency department for admission remdesivir and dexamethasone have been initiated in the emergency department This note was dictated using [employer] voice recognition software please call with any questions on syntax or grammar.
--- NOTE | 2020-04-08 13:56 | CR ---
CHEST: Portable 04/08/2020 CLINICAL HISTORY:Respiratory failure COMPARISON:04/03/2020 FINDINGS: There are diffuse bilateral pulmonary infiltrates predominating in the lower lobes bilaterally and right upper lobe. This is a significant change since prior chest x-ray. There are no effusions. IMPRESSION: Bilateral pneumonias
--- NOTE | 2020-04-08 17:02 | PCM.HP.2 ---
H&P History of Present Illness - General Date of Service: 04/08/20 Admit Problem/Dx: Admission Diagnosis/Problem Admission Diagnosis/Problem Pneumonia Source of Information: Patient, Family, Provider History Limitations: Reports: No Limitations - History of Present Illness Initial Comments - Free Text/Narative: CC: I feel terrible HPI: Aurea presents to the emergency room today with 8 days of progressive symptoms including cough, shortness of breath, weakness, extreme fatigue. She has had a steady decline in her respiratory status to the point that she is now short of breath with any activity. She has a regular dry nonproductive cough. She has intermittent headaches, nasal congestion, mild sore throat as well as diffuse myalgias. She has had nausea but has not had any vomiting. No diarrhea. She has had subjective fevers as well as anorexia. She has been able to drink some fluids. She has steadily been going downhill and does not feel that she is able to care for herself any longer. She was seen in the emergency room about 5 days ago and labs and vital signs were okay at that time. Work-up in the emergency room revealed leukopenia and borderline t hrombocytopenia. COVID-19 testing was positive. D-dimer is moderately elevated. She is hypoxic and requiring supplemental oxygen. She did receive dexamethasone and remdesivir in the emergency room. She is going to be admitted to the Covid unit for further management. - Related Data Allergies/Adverse Reactions: Allergies Allergy/AdvReac Type Severity Reaction Status Date / Time ranitidine HCl [From Zantac] Allergy Severe Difficulty Verified 06/11/19 01:27 Breathing caffeine Allergy Tachycardia Verified 06/11/19 01:27 Home Medications: Home Meds [place]'s Wort 150 mg PO DAILY 04/12/15 [History] Aspirin [Halfprin] 81 mg PO DAILY 03/02/17 [History] Hydrochlorothiazide 25 mg PO DAILY 03/02/17 [History] Levothyroxine 175 mcg PO DAILY 08/27/17 [History] Metoprolol Tartrate [Lopressor] 25 mg PO BID 07/25/18 [History] Past Medical History HEENT History: Reports: Impaired Vision Cardiovascular History: Reports: Afib, Heart Murmur, High Cholesterol, Hypertension Respiratory History: Reports: Bronchitis, Recurrent, Pneumonia, Recurrent Gastrointestinal History: Reports: Chronic Constipation, Other (See Below) Other Gastrointestinal History: "gallbladder attacks" 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: Reports: 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 Musculoskeletal History: Reports: Osteoporosis Psychiatric History: Reports: Depression, Panic Attack Endocrine/Metabolic History: Reports: Hypothyroidism, Obesity/BMI 30+ Hematologic History: Reports: None Immunologic History: Reports: None Oncologic (Cancer) History: Reports: None Dermatologic History: Reports: Psoriasis - Infectious Disease History Infectious Disease History: Reports: Chicken Pox - Past Surgical History Head Surgeries/Procedures: Reports: None HEENT Surgical History: Reports: Oral Surgery Cardiovascular Surgical History: Reports: None Respiratory Surgical History: Reports: None GI Surgical History: Reports: None Female Surgical History: Reports: None Endocrine Surgical History: Reports: None Other Endocrine Surgeries/Procedures: radiation via pill form february 2015 Musculoskeletal Surgical History: Reports: Other (See Below) Other Musculoskeletal Surgeries/Procedures:: arthritis in right knee and hips, rt lower leg surgery, left foot surgery Oncologic Surgical History: Reports: None Dermatological Surgical History: Reports: None Social & Family History - Family History Family Medical History: No Pertinent Family History - Tobacco Use Tobacco Use Status *Q: Unknown Ever Used Tobacco - Caffeine Use Caffeine Use: Reports: None - Alcohol Use Alcohol Use History: No H&P Review of Systems - Review of Systems: Review Of Systems: See Below Free Text/Narrative: A complete 12 point review of systems was obtained. Pertinent positives and negatives are noted in the history of present illness. All other systems were reviewed and were negative except as noted. Exam - Exam Exam: See Below - Vital Signs Vital Signs: Last Vital Signs Temp 37.2 C 04/08/20 12:45 Pulse 80 04/08/20 12:45 Resp 22 H 04/08/20 12:45 BP 130/70 04/08/20 12:45 Pulse Ox 82 L 04/08/20 12:45 Weight: 151 kg - Exam Quality Assessment: Supplemental Oxygen General: Alert, Oriented, Cooperative, Mild Distress HEENT: Conjunctiva Clear. No: Mucosa Moist & [place] (Dry), Scleral Icterus Neck: Supple, Trachea Midline. No: JVD Lungs: Normal Respiratory Effort, Crackles (Mild in both lower and mid lung sagastume bilaterally). No: Wheezing Cardiovascular: Regular Rate, Regular Rhythm, Systolic Murmur GI/Abdominal Exam: Normal Bowel Sounds, Soft, Non-Tender, No Distention Back Exam: Normal Inspection, Full Range of Motion Extremities: Pedal Edema (Trace bilateral ankle edema). No: Increased Warmth Skin: Warm, Dry Neuro Extensive - Mental Status: Alert, Oriented x3, Nl Response to Commands Neuro Extensive - Motor, Sensory, Reflexes: No: Dysarthria, Abnormal Motor, Tremor Psychiatric: Alert, Normal Affect - Patient Data Lab Results Last 24 hrs: Laboratory Results - last 24 hr 04/08/20 04/08/20 04/08/20 Range/Units 13:46 13:46 13:46 WBC 4.3 L (4.5-11.0) K/uL RBC 4.86 (3.30-5.50) M/uL Hgb 14.2 (12.0-15.0) g/dL Hct 42.9 (36.0-48.0) % MCV 88 (80-98) fL MCH 29 (27-31) pg MCHC 33 (32-36) % Plt Count 156 (150-400) K/uL Neut % (Auto) 84 H (36-66) % Lymph % (Auto) 10 L (24-44) % Clay % (Auto) 6 (2-6) % Eos % (Auto) 0 L (2-4) % Baso % (Auto) 0 (0-1) % D-Dimer, Quantitative 1168.88 H (0.0-500.0) ng/mL Puncture Site ABG pH (7.350-7.450) ABG pCO2 (35.0-42.0) mmHg ABG pO2 (75.0-100.0) mmHg ABG HCO3 (22.0-26.0) mmol/L ABG Total CO2 (21.0-25.0) mmol/L ABG O2 Saturation (95.0-98.0) % ABG O2 Content (15.0-23.0) %vol ABG Base Excess mm/L ABG Hemoglobin (12.0-16.0) g/dL ABG Oxyhemoglobin % ABG Carboxyhemoglobin (0.0-1.6) % ABG Methemoglobin % Andres Test O2 Delivery Device Oxygen Flow Rate L Sodium (140-148) mmol/L Potassium (3.6-5.2) mmol/L Chloride (100-108) mmol/L Carbon Dioxide (21-32) mmol/L Anion Gap (5.0-14.0) mmol/L BUN (7-18) mg/dL Creatinine (0.6-1.0) mg/dL Est Cr Clr Drug Dosing mL/min Estimated GFR (MDRD) (>60) Glucose (74-106) mg/dL Lactic Acid (0.4-2.0) mmol/L Calcium (8.5-10.1) mg/dL Ferritin 697 H (8-388) ng/ml Total Bilirubin (0.2-1.0) mg/dL Direct Bilirubin (0.0-0.2) mg/dL Indirect Bilirubin AST (15-37) U/L ALT (12-78) U/L Alkaline Phosphatase (46-116) U/L Lactate Dehydrogenase (82-234) U/L Troponin I (0.000-0.056) ng/mL C-Reactive Protein (0.0-0.3) mg/dL Total Protein (6.4-8.2) g/dL Albumin (3.4-5.0) g/dL Globulin (2.3-3.5) g/dL Albumin/Globulin Ratio (1.2-2.2) Procalcitonin ng/mL 04/08/20 04/08/20 04/08/20 Range/Units 13:46 13:46 13:46 WBC (4.5-11.0) K/uL RBC (3.30-5.50) M/uL Hgb (12.0-15.0) g/dL Hct (36.0-48.0) % MCV (80-98) fL MCH (27-31) pg MCHC (32-36) % Plt Count (150-400) K/uL Neut % (Auto) (36-66) % Lymph % (Auto) (24-44) % Clay % (Auto) (2-6) % Eos % (Auto) (2-4) % Baso % (Auto) (0-1) % D-Dimer, Quantitative (0.0-500.0) ng/mL Puncture Site ABG pH (7.350-7.450) ABG pCO2 (35.0-42.0) mmHg ABG pO2 (75.0-100.0) mmHg ABG HCO3 (22.0-26.0) mmol/L ABG Total CO2 (21.0-25.0) mmol/L ABG O2 Saturation (95.0-98.0) % ABG O2 Content (15.0-23.0) %vol ABG Base Excess mm/L ABG Hemoglobin (12.0-16.0) g/dL ABG Oxyhemoglobin % ABG Carboxyhemoglobin (0.0-1.6) % ABG Methemoglobin % Andres Test O2 Delivery Device Oxygen Flow Rate L Sodium 135 L (140-148) mmol/L Potassium 3.4 L (3.6-5.2) mmol/L Chloride 96 L (100-108) mmol/L Carbon Dioxide 31 (21-32) mmol/L Anion Gap 11.4 (5.0-14.0) mmol/L BUN 11 (7-18) mg/dL Creatinine 0.8 (0.6-1.0) mg/dL Est Cr Clr Drug Dosing 76.68 mL/min Estimated GFR (MDRD) > 60 (>60) Glucose 165 H (74-106) mg/dL Lactic Acid 1.5 (0.4-2.0) mmol/L Calcium 8.2 L (8.5-10.1) mg/dL Ferritin (8-388) ng/ml Total Bilirubin 0.3 (0.2-1.0) mg/dL Direct Bilirubin 0.15 (0.0-0.2) mg/dL Indirect Bilirubin 0.15 AST 63 H D (15-37) U/L ALT 35 (12-78) U/L Alkaline Phosphatase 74 (46-116) U/L Lactate Dehydrogenase 520 H (82-234) U/L Troponin I (0.000-0.056) ng/mL C-Reactive Protein 6.42 H (0.0-0.3) mg/dL Total Protein 6.4 (6.4-8.2) g/dL Albumin 2.6 L (3.4-5.0) g/dL Globulin 3.8 H (2.3-3.5) g/dL Albumin/Globulin Ratio 0.7 L (1.2-2.2) Procalcitonin 0.06 ng/mL 04/08/20 04/08/20 Range/Units 13:46 13:56 WBC (4.5-11.0) K/uL RBC (3.30-5.50) M/uL Hgb (12.0-15.0) g/dL Hct (36.0-48.0) % MCV (80-98) fL MCH (27-31) pg MCHC (32-36) % Plt Count (150-400) K/uL Neut % (Auto) (36-66) % Lymph % (Auto) (24-44) % Clay % (Auto) (2-6) % Eos % (Auto) (2-4) % Baso % (Auto) (0-1) % D-Dimer, Quantitative (0.0-500.0) ng/mL Puncture Site Lt radial ABG pH 7.436 (7.350-7.450) ABG pCO2 41.6 (35.0-42.0) mmHg ABG pO2 56.6 L (75.0-100.0) mmHg ABG HCO3 27.5 H (22.0-26.0) mmol/L ABG Total CO2 24.0 (21.0-25.0) mmol/L ABG O2 Saturation 89.6 L (95.0-98.0) % ABG O2 Content 17.8 (15.0-23.0) %vol ABG Base Excess 3.4 mm/L ABG Hemoglobin 14.4 (12.0-16.0) g/dL ABG Oxyhemoglobin 87.9 % ABG Carboxyhemoglobin 1.2 (0.0-1.6) % ABG Methemoglobin 0.7 % Andres Test Passed O2 Delivery Device Nasal cannula Oxygen Flow Rate 3.0 L Sodium (140-148) mmol/L Potassium (3.6-5.2) mmol/L Chloride (100-108) mmol/L Carbon Dioxide (21-32) mmol/L Anion Gap (5.0-14.0) mmol/L BUN (7-18) mg/dL Creatinine (0.6-1.0) mg/dL Est Cr Clr Drug Dosing mL/min Estimated GFR (MDRD) (>60) Glucose (74-106) mg/dL Lactic Acid (0.4-2.0) mmol/L Calcium (8.5-10.1) mg/dL Ferritin (8-388) ng/ml Total Bilirubin (0.2-1.0) mg/dL Direct Bilirubin (0.0-0.2) mg/dL Indirect Bilirubin AST (15-37) U/L ALT (12-78) U/L Alkaline Phosphatase (46-116) U/L Lactate Dehydrogenase (82-234) U/L Troponin I < 0.017 (0.000-0.056) ng/mL C-Reactive Protein (0.0-0.3) mg/dL Total Protein (6.4-8.2) g/dL Albumin (3.4-5.0) g/dL Globulin (2.3-3.5) g/dL Albumin/Globulin Ratio (1.2-2.2) Procalcitonin ng/mL Result Diagrams: 04/08/20 13:46 04/08/20 13:46 Imaging Impressions Last 24 hrs: Chest [id number] personally reviewed-there are patchy bilateral opacities in both lungs especially in the lower half of the lung sagastume. No large infiltrate. No mass or effusion. Heart size is normal. Sepsis Event Note - Evaluation Sepsis Screening Result: No Definite Risk - Focused Exam Vital Signs: Vital Signs Temp Pulse Resp BP Pulse Ox 04/08/20 12:45 37.2 C 80 22 H 130/70 82 L 04/08/20 12:44 37.2 C 80 22 H 130/70 82 L *Q Meaningful Use (ADM) - VTE Risk Assess *Q Each Risk Factor Represents 1 Point: Age 41 - 59 years, Obesity ( BMI > 25 kg/m2), Serious lung disease including pneumonia Total Score 1 Point Risk Factors: 3 Each Risk Factor Represents 2 Points: None Total Score 2 Point Risk Factors: 0 Each Risk Factor Represents 3 Points: None Total Score 3 Point Risk Factors: 0 Each Risk Factor Represents 5 Points: None Total Score 5 Point Risk Factors: 0 Venous Thromboembolism Risk Factor Score *Q: 3 - Problem List (1) Pneumonia due to COVID-19 virus SNOMED Code(s): 120247908197308828 ICD Code: U07.1 - COVID-19; J12.89 - OTHER VIRAL PNEUMONIA Status: Acute Current Visit: Yes (2) Acute respiratory failure with hypoxia SNOMED Code(s): 36132969, 222686641 ICD Code: J96.01 - ACUTE RESPIRATORY FAILURE WITH HYPOXIA Status: Acute Current Visit: Yes (3) Paroxysmal atrial fibrillation SNOMED Code(s): 637385951 ICD Code: I48.0 - PAROXYSMAL ATRIAL FIBRILLATION Status: Chronic Current Visit: Yes (4) Essential hypertension SNOMED Code(s): 64458150 ICD Code: I10 - ESSENTIAL (PRIMARY) HYPERTENSION Status: Chronic Current Visit: Yes Problem List Initiated/Reviewed/Updated: Yes Orders Last 24hrs: Active Orders 24 hr Category Date Time Status Patient Status Manage Transfer [TRANSFER] Routine ADT 04/08/20 16:53 Active Peripheral IV Care [RC] . DIRECTED Care 04/08/20 13:21 Active Acetaminophen [TylenoL] Med 04/08/20 13:11 Active 650 mg PO Q4H PRN Sodium Chloride 0.9% [Saline Flush] Med 04/08/20 13:21 Active 10 ml FLUSH ASDIRECTED PRN Isolation [COMM] Stat Oth 04/08/20 13:11 Ordered Peripheral IV Insertion Adult [OM.PC] Urgent Oth 04/08/20 13:21 Ordered Resuscitation Status Routine Resus Stat 04/08/20 16:54 Ordered Medication Orders Acetaminophen (Tylenol) 650 mg PO Q4H PRN PRN Reason: Fever Greater Than 101 Sodium Chloride (Saline Flush) 10 ml FLUSH ASDIRECTED PRN PRN Reason: Keep Vein Open Last Admin: 04/08/20 13:47 Dose: 10 ml Documented by: [id number] Assessment/Plan Comment:: ASSESSMENT AND PLAN - Pneumonia due to COVID-19 infection-complicated by acute respiratory failure with hypoxia. Moderate illness at this time. Elevated D-dimer and CRP. Multitude of accompanying symptoms. We did discuss treatment options including dexamethasone, convalescent plasma and remdesivir. She is aware of the urgency was authorization for the remdesivir and wishes to proceed with treatment. I see no obvious contraindications for any of the treatment modalities. She is at a higher risk with her obesity, chronic heart disease and hypertension. -Supplement oxygen -Symptomatic management -Dexamethasone 6 mg daily for 10 days (start 04/08) -Remdesivir x5 days (1 of 5) -Convalescent plasma x3 days (1 of 3) -Daily CMP and CBC -D-dimer and CRP every other day unless worsening -Isolation Paroxysmal atrial fibrillation-currently in sinus rhythm. -Continue beta-teresita Essential hypertension-continue home medications with the exception of hydrochlo rothiazide. Maintenance issues - - DVT prophylaxis -enoxaparin - GI prophylaxis -not indicated - Nutrition -regular diet - Verma catheter -not indicated CODE STATUS -full code Admission justification -this patient will be admitted for inpatient services and is medically appropriate meeting medical necessity for inpatient admission as outlined in my documentation. I reasonably expect the patient will require inpatient services that span a period time over 2 midnights. I reasonably expect this patient to be discharged or transferred within 96 hours after admission to the [facility]. Disposition -anticipate discharge home after the hospital stay Primary care physician - Rae Feng M.D. - Mortality Measure Prognosis:: Good
[2020-04-08] MEDS ORDERED: Ondansetron 4 MG/2 ML SDV IV PRN (17:38)
[2020-04-08] MEDS ORDERED: Melatonin 3 MG Tab PO PRN (17:38)
[2020-04-08] MEDS ORDERED: Ondansetron 4 MG Tab.DIS PO PRN (17:38)
[2020-04-08] MEDS ORDERED: Benzonatate 100 MG Cap PO PRN (17:38)
[2020-04-08] MEDS ORDERED: Prochlorperazine 10 MG Tab PO PRN (17:38)
[2020-04-08] MEDS ORDERED: Magnesium Hydroxide 400 MG/5 ML Susp 30 ML Cup PO PRN (17:38)
[2020-04-08] MEDS: guaiFENesin/Dextromethorphan 100-10 MG/5 ML Soln 10 ML Cup PO PRN (19:57)
[2020-04-08] MEDS: Metoprolol Tartrate 25 MG Tab PO SCH (21:19)
[2020-04-08] MEDS: Aspirin 81 MG Tab.EC PO SCH (21:25)
[2020-04-09] MEDS: Benzocaine/Cetylpyridinium/Menthol Lozenge MUCMEM PRN ×2 (00:13→02:24)
--- NOTE | 2020-04-09 08:44 | PCM.PN ---
- General Info Date of Service: 04/09/20 Subjective Update: Overnight she has had a steady decline in her respiratory status. She is now requiring 21 L of supplemental oxygen between high flow nasal cannula and her facemask. She feels moderately short of breath today. She becomes very dyspneic with any activity. She did not have any fevers. No headaches or myalgias. Other than the breathing she is feeling better today. Tolerating treatment for Covid so far. - Review of Systems General: Reports: Weakness. Denies: Fever Pulmonary: Reports: Shortness of Breath - Patient Data Vitals - Most Recent: Last Vital Signs Temp 36.5 C 04/09/20 07:00 Pulse 50 L 04/09/20 07:00 Resp 18 04/09/20 07:00 BP 137/60 04/09/20 07:00 Pulse Ox 96 04/09/20 07:00 Weight - Most Recent: 150.593 kg I&O - Last 24 Hours: Intake & Output 04/08/20 04/09/20 04/09/20 22:59 06:59 14:59 Intake Total 606 Output Total 200 500 Balance -200 106 Lab Results Last 24 Hours: Laboratory Results - last 24 hr 04/08/20 04/08/20 04/08/20 Range/Units 13:46 13:46 13:46 WBC 4.3 L (4.5-11.0) K/uL RBC 4.86 (3.30-5.50) M/uL Hgb 14.2 (12.0-15.0) g/dL Hct 42.9 (36.0-48.0) % MCV 88 (80-98) fL MCH 29 (27-31) pg MCHC 33 (32-36) % Plt Count 156 (150-400) K/uL Neut % (Auto) 84 H (36-66) % Lymph % (Auto) 10 L (24-44) % [place] % (Auto) 6 (2-6) % Eos % (Auto) 0 L (2-4) % Baso % (Auto) 0 (0-1) % D-Dimer, Quantitative 1168.88 H (0.0-500.0) ng/mL Puncture Site ABG pH (7.350-7.450) ABG pCO2 (35.0-42.0) mmHg ABG pO2 (75.0-100.0) mmHg ABG HCO3 (22.0-26.0) mmol/L ABG Total CO2 (21.0-25.0) mmol/L ABG O2 Saturation (95.0-98.0) % ABG O2 Content (15.0-23.0) %vol ABG Base Excess mm/L ABG Hemoglobin (12.0-16.0) g/dL ABG Oxyhemoglobin % ABG Carboxyhemoglobin (0.0-1.6) % ABG Methemoglobin % Andres Test O2 Delivery Device Oxygen Flow Rate L Sodium (140-148) mmol/L Potassium (3.6-5.2) mmol/L Chloride (100-108) mmol/L Carbon Dioxide (21-32) mmol/L Anion Gap (5.0-14.0) mmol/L BUN (7-18) mg/dL Creatinine (0.6-1.0) mg/dL Est Cr Clr Drug Dosing mL/min Estimated GFR (MDRD) (>60) Glucose (74-106) mg/dL Lactic Acid (0.4-2.0) mmol/L Calcium (8.5-10.1) mg/dL Ferritin 697 H (8-388) ng/ml Total Bilirubin (0.2-1.0) mg/dL Direct Bilirubin (0.0-0.2) mg/dL Indirect Bilirubin AST (15-37) U/L ALT (12-78) U/L Alkaline Phosphatase (46-116) U/L Lactate Dehydrogenase (82-234) U/L Troponin I (0.000-0.056) ng/mL C-Reactive Protein (0.0-0.3) mg/dL Total Protein (6.4-8.2) g/dL Albumin (3.4-5.0) g/dL Globulin (2.3-3.5) g/dL Albumin/Globulin Ratio (1.2-2.2) Procalcitonin ng/mL Blood Type 04/08/20 04/08/20 04/08/20 Range/Units 13:46 13:46 13:46 WBC (4.5-11.0) K/uL RBC (3.30-5.50) M/uL Hgb (12.0-15.0) g/dL Hct (36.0-48.0) % MCV (80-98) fL MCH (27-31) pg MCHC (32-36) % Plt Count (150-400) K/uL Neut % (Auto) (36-66) % Lymph % (Auto) (24-44) % [place] % (Auto) (2-6) % Eos % (Auto) (2-4) % Baso % (Auto) (0-1) % D-Dimer, Quantitative (0.0-500.0) ng/mL Puncture Site ABG pH (7.350-7.450) ABG pCO2 (35.0-42.0) mmHg ABG pO2 (75.0-100.0) mmHg ABG HCO3 (22.0-26.0) mmol/L ABG Total CO2 (21.0-25.0) mmol/L ABG O2 Saturation (95.0-98.0) % ABG O2 Content (15.0-23.0) %vol ABG Base Excess mm/L ABG Hemoglobin (12.0-16.0) g/dL ABG Oxyhemoglobin % ABG Carboxyhemoglobin (0.0-1.6) % ABG Methemoglobin % Andres Test O2 Delivery Device Oxygen Flow Rate L Sodium 135 L (140-148) mmol/L Potassium 3.4 L (3.6-5.2) mmol/L Chloride 96 L (100-108) mmol/L Carbon Dioxide 31 (21-32) mmol/L Anion Gap 11.4 (5.0-14.0) mmol/L BUN 11 (7-18) mg/dL Creatinine 0.8 (0.6-1.0) mg/dL Est Cr Clr Drug Dosing 76.68 mL/min Estimated GFR (MDRD) > 60 (>60) Glucose 165 H (74-106) mg/dL Lactic Acid 1.5 (0.4-2.0) mmol/L Calcium 8.2 L (8.5-10.1) mg/dL Ferritin (8-388) ng/ml Total Bilirubin 0.3 (0.2-1.0) mg/dL Direct Bilirubin 0.15 (0.0-0.2) mg/dL Indirect Bilirubin 0.15 AST 63 H D (15-37) U/L ALT 35 (12-78) U/L Alkaline Phosphatase 74 (46-116) U/L Lactate Dehydrogenase 520 H (82-234) U/L Troponin I (0.000-0.056) ng/mL C-Reactive Protein 6.42 H (0.0-0.3) mg/dL Total Protein 6.4 (6.4-8.2) g/dL Albumin 2.6 L (3.4-5.0) g/dL Globulin 3.8 H (2.3-3.5) g/dL Albumin/Globulin Ratio 0.7 L (1.2-2.2) Procalcitonin 0.06 ng/mL Blood Type 04/08/20 04/08/20 04/08/20 Range/Units 13:46 13:56 17:38 WBC (4.5-11.0) K/uL RBC (3.30-5.50) M/uL Hgb (12.0-15.0) g/dL Hct (36.0-48.0) % MCV (80-98) fL MCH (27-31) pg MCHC (32-36) % Plt Count (150-400) K/uL Neut % (Auto) (36-66) % Lymph % (Auto) (24-44) % [place] % (Auto) (2-6) % Eos % (Auto) (2-4) % Baso % (Auto) (0-1) % D-Dimer, Quantitative (0.0-500.0) ng/mL Puncture Site Lt radial ABG pH 7.436 (7.350-7.450) ABG pCO2 41.6 (35.0-42.0) mmHg ABG pO2 56.6 L (75.0-100.0) mmHg ABG HCO3 27.5 H (22.0-26.0) mmol/L ABG Total CO2 24.0 (21.0-25.0) mmol/L ABG O2 Saturation 89.6 L (95.0-98.0) % ABG O2 Content 17.8 (15.0-23.0) %vol ABG Base Excess 3.4 mm/L ABG Hemoglobin 14.4 (12.0-16.0) g/dL ABG Oxyhemoglobin 87.9 % ABG Carboxyhemoglobin 1.2 (0.0-1.6) % ABG Methemoglobin 0.7 % Andres Test Passed O2 Delivery Device Nasal cannula Oxygen Flow Rate 3.0 L Sodium (140-148) mmol/L Potassium (3.6-5.2) mmol/L Chloride (100-108) mmol/L Carbon Dioxide (21-32) mmol/L Anion Gap (5.0-14.0) mmol/L BUN (7-18) mg/dL Creatinine (0.6-1.0) mg/dL Est Cr Clr Drug Dosing mL/min Estimated GFR (MDRD) (>60) Glucose (74-106) mg/dL Lactic Acid (0.4-2.0) mmol/L Calcium (8.5-10.1) mg/dL Ferritin (8-388) ng/ml Total Bilirubin (0.2-1.0) mg/dL Direct Bilirubin (0.0-0.2) mg/dL Indirect Bilirubin AST (15-37) U/L ALT (12-78) U/L Alkaline Phosphatase (46-116) U/L Lactate Dehydrogenase (82-234) U/L Troponin I < 0.017 (0.000-0.056) ng/mL C-Reactive Protein (0.0-0.3) mg/dL Total Protein (6.4-8.2) g/dL Albumin (3.4-5.0) g/dL Globulin (2.3-3.5) g/dL Albumin/Globulin Ratio (1.2-2.2) Procalcitonin ng/mL Blood Type O POSITIVE 04/09/20 04/09/20 Range/Units 06:15 06:15 WBC 4.3 L (4.5-11.0) K/uL RBC 4.78 (3.30-5.50) M/uL Hgb 13.8 (12.0-15.0) g/dL Hct 42.2 (36.0-48.0) % MCV 88 (80-98) fL MCH 29 (27-31) pg MCHC 33 (32-36) % Plt Count 167 (150-400) K/uL Neut % (Auto) (36-66) % Lymph % (Auto) (24-44) % [place] % (Auto) (2-6) % Eos % (Auto) (2-4) % Baso % (Auto) (0-1) % D-Dimer, Quantitative (0.0-500.0) ng/mL Puncture Site ABG pH (7.350-7.450) ABG pCO2 (35.0-42.0) mmHg ABG pO2 (75.0-100.0) mmHg ABG HCO3 (22.0-26.0) mmol/L ABG Total CO2 (21.0-25.0) mmol/L ABG O2 Saturation (95.0-98.0) % ABG O2 Content (15.0-23.0) %vol ABG Base Excess mm/L ABG Hemoglobin (12.0-16.0) g/dL ABG Oxyhemoglobin % ABG Carboxyhemoglobin (0.0-1.6) % ABG Methemoglobin % Andres Test O2 Delivery Device Oxygen Flow Rate L Sodium 137 L (140-148) mmol/L Potassium 3.5 L (3.6-5.2) mmol/L Chloride 99 L (100-108) mmol/L Carbon Dioxide 31 (21-32) mmol/L Anion Gap 10.5 (5.0-14.0) mmol/L BUN 13 (7-18) mg/dL Creatinine 0.8 (0.6-1.0) mg/dL Est Cr Clr Drug Dosing 73.63 mL/min Estimated GFR (MDRD) > 60 (>60) Glucose 150 H (74-106) mg/dL Lactic Acid (0.4-2.0) mmol/L Calcium 8.3 L (8.5-10.1) mg/dL Ferritin (8-388) ng/ml Total Bilirubin 0.3 (0.2-1.0) mg/dL Direct Bilirubin (0.0-0.2) mg/dL Indirect Bilirubin AST 62 H (15-37) U/L ALT 37 (12-78) U/L Alkaline Phosphatase 79 (46-116) U/L Lactate Dehydrogenase (82-234) U/L Troponin I (0.000-0.056) ng/mL C-Reactive Protein (0.0-0.3) mg/dL Total Protein 6.5 (6.4-8.2) g/dL Albumin 2.5 L (3.4-5.0) g/dL Globulin 4.0 H (2.3-3.5) g/dL Albumin/Globulin Ratio 0.6 L (1.2-2.2) Procalcitonin ng/mL Blood Type Med Orders - Current: Current Medications Acetaminophen (Tylenol) 650 mg PO Q4H PRN PRN Reason: Pain (Mild 1-3)/fever Last Admin: 04/08/20 19:57 Dose: 650 mg Documented by: Aspirin (Halfprin) 81 mg PO BEDTIME [facility] Last Admin: 04/08/20 21:25 Dose: 81 mg Documented by: Benzocaine/Menthol (Cepacol Sore Throat) 1 lozenge MUCMEM Q1H PRN PRN Reason: Sore Throat Last Admin: 04/09/20 02:24 Dose: 1 elijah Documented by: Benzonatate (Tessalon Perles) 100 mg PO TID PRN PRN Reason: Cough Dexamethasone (Dexamethasone) 6 mg PO Q24H [facility] Stop: 04/17/20 13:01 Enoxaparin Sodium (Lovenox) 40 mg SUBCUT DAILY [facility] Guaifenesin/Dextromethorphan (Robitussin Dm) 10 ml PO Q4H PRN PRN Reason: Cough Last Admin: 04/08/20 19:57 Dose: 10 ml Documented by: Remdesivir 100 mg/ Sodium (Chloride) 100 mls @ 100 mls/hr IV Q24H [facility] Stop: 04/12/20 14:59 Levothyroxine Sodium (Synthroid) 175 mcg PO DAILY [facility] Magnesium Hydroxide (Milk Of Magnesia) 30 ml PO Q12H PRN PRN Reason: Constipation Melatonin (Melatonin) 9 mg PO BEDTIME PRN PRN Reason: Sleep Metoprolol Tartrate (Lopressor) 25 mg PO BID [facility] Last Admin: 04/08/20 21:19 Dose: 25 mg Documented by: Ondansetron HCl (Zofran) 4 mg IV Q6H PRN PRN Reason: Nausea/Vomiting Ondansetron HCl (Zofran Odt) 4 mg PO Q6H PRN PRN Reason: Nausea able to take PO Prochlorperazine Maleate (Compazine) 10 mg PO Q6H PRN PRN Reason: Nausea/Vomiting Senna/Docusate Sodium (Senna Plus) 1 tab PO BID PRN PRN Reason: Constipation Sodium Chloride (Saline Flush) 10 ml FLUSH ASDIRECTED PRN PRN Reason: Keep Vein Open Last Admin: 04/08/20 13:47 Dose: 10 ml Documented by: Discontinued Medications Acetaminophen (Tylenol) 650 mg PO Q4H PRN PRN Reason: Fever Greater Than 101 Aspirin (Halfprin) 81 mg PO DAILY [facility] Dexamethasone (Decadron) 6 mg IVPUSH DAILY [facility] Stop: 04/17/20 09:01 Last Admin: 04/08/20 13:43 Dose: 6 mg Documented by: Remdesivir 200 mg/ Sodium (Chloride) 250 mls @ 250 mls/hr IV ONETIME ONE Stop: 04/08/20 14:59 Last Admin: 04/08/20 14:16 Dose: 250 mls/hr Documented by: - Exam Quality Assessment: Supplemental Oxygen General: Alert, Oriented, Cooperative, Mild Distress Lungs: Crackles (both bases). No: Normal Respiratory Effort (increased work of breathing ), Wheezing Cardiovascular: Regular Rhythm, Bradycardia GI/Abdominal Exam: Soft, No Distention Extremities: No Pedal Edema. No: Increased Warmth Skin: Warm, Dry Psy/Mental Status: Alert, Normal Affect Sepsis Event Note - Evaluation Sepsis Screening Result: No Definite Risk - Focused Exam Vital Signs: Vital Signs Temp Temp Pulse Pulse Resp BP BP 04/09/20 07:00 36.5 C 50 L 18 137/60 04/09/20 04:22 36.5 C 66 20 149/70 H 04/09/20 01:51 36.5 C 44 L 18 139/62 04/09/20 01:13 36.5 C 54 L 24 H 140/75 04/09/20 00:50 04/09/20 00:43 36.5 C 55 L 20 130/68 04/09/20 00:13 36.5 C 57 L 20 135/75 04/08/20 23:41 36.5 C 51 L 20 137/72 04/08/20 23:21 36.5 C 52 L 16 135/68 04/08/20 21:38 36.5 C 57 L 18 04/08/20 21:19 70 146/75 H BP Pulse Ox 04/09/20 07:00 96 04/09/20 04:22 97 04/09/20 01:51 04/09/20 01:13 04/09/20 00:50 93 L 04/09/20 00:43 94 L 04/09/20 00:13 89 L 04/08/20 23:41 91 L 04/08/20 23:21 04/08/20 21:38 138/74 92 L 04/08/20 21:19 - Problem List & Annotations (1) Pneumonia due to COVID-19 virus SNOMED Code(s): 784794708405980273 Code(s): U07.1 - COVID-19; J12.89 - OTHER VIRAL PNEUMONIA Status: Acute Current Visit: Yes (2) Acute respiratory failure with hypoxia SNOMED Code(s): 42266287, 303263907 Code(s): J96.01 - ACUTE RESPIRATORY FAILURE WITH HYPOXIA Status: Acute Current Visit: Yes (3) Paroxysmal atrial fibrillation SNOMED Code(s): 160775771 Code(s): I48.0 - PAROXYSMAL ATRIAL FIBRILLATION Status: Chronic Current Visit: Yes (4) Essential hypertension SNOMED Code(s): 32620057 Code(s): I10 - ESSENTIAL (PRIMARY) HYPERTENSION Status: Chronic Current Visit: Yes - Problem List Review Problem List Initiated/Reviewed/Updated: Yes - My Orders Last 24 Hours: My Active Orders 04/08/20 16:54 Resuscitation Status Routine 04/08/20 Dinner Regular Diet [DIET] 04/08/20 17:38 ABO/RH TYPE [BBK] Routine PATIENT RETYPE [BBK] Routine Acetaminophen [TylenoL] 650 mg PO Q4H PRN Benzonatate [Tessalon Perles] 100 mg PO TID PRN Dextromethorphan/guaiFENesin [Robitussin DM] 10 ml PO Q4H PRN Docusate Sodium/Sennosides [Senna Plus] 1 tab PO BID PRN Magnesium Hydroxide [Milk of Magnesia] 30 ml PO Q12H PRN Melatonin 9 mg PO BEDTIME PRN Ondansetron [Zofran ODT] 4 mg PO Q6H PRN Ondansetron [Zofran] 4 mg IV Q6H PRN Prochlorperazine [Compazine] 10 mg PO Q6H PRN 04/08/20 17:38 Patient Status [ADT] Routine Intake and Output [RC] QSHIFT Notify Provider Vital Signs [RC] ASDIRECTED Oxygen Therapy [RC] PRN Pulse Oximetry [RC] CONTINUOUS Up With Assistance [RC] ASDIRECTED VTE/DVT Education [RC] Per Unit Routine Verify Patient Consent Obtain [RC] ASDIRECTED Vital Signs [RC] Q1H FRESH FROZEN PLASMA [BBK] Routine Transfuse Fresh Frozen Plasma [COMM] Routine 04/08/20 21:00 Metoprolol Tartrate [Lopressor] 25 mg PO BID 04/08/20 21:30 Aspirin [Halfprin] 81 mg PO BEDTIME 04/09/20 08:41 Transfer Patient (Change bed) [ADT] Routine Cardiac Monitoring [RC] .As Directed 04/09/20 09:00 Enoxaparin [Lovenox] 40 mg SUBCUT BID Enoxaparin [Lovenox] 40 mg SUBCUT DAILY Levothyroxine [Synthroid] 175 mcg PO DAILY 04/09/20 13:00 dexAMETHasone 6 mg PO Q24H 04/09/20 14:00 Remdesivir (Eua) [Remdesivir (EUA)] 100 mg Sodium Chloride 0.9% [Normal Saline] 100 ml IV Q24H 04/09/20 17:00 Transfuse Fresh Frozen Plasma [COMM] Routine 04/10/20 17:00 Transfuse Fresh Frozen Plasma [COMM] Routine - Plan Plan:: ASSESSMENT AND PLAN - Pneumonia due to COVID-19 infection-complicated by acute respiratory failure with hypoxia. Decline in respiratory status overnight necessitating transfer to the intensive care unit this morning. Seems to have stabilized with high flow nasal cannula. -Supplement oxygen -Symptomatic management -Dexamethasone 6 mg daily for 10 days (start 04/08) -Remdesivir x5 days (2 of 5) -Convalescent plasma x3 days (2 of 3) -Daily CMP and CBC -D-dimer and CRP every other day unless worsening -Isolation Paroxysmal atrial fibrillation-currently in sinus rhythm. -Holding beta-teresita Essential hypertension-blood pressure on the lower side. -Holding antihypertensives Maintenance issues - - DVT prophylaxis -enoxaparin - GI prophylaxis -not indicated - Nutrition -regular diet Disposition -anticipate discharge home after the hospital stay Primary care physician - Rae Feng M.D.
[2020-04-09] MEDS ORDERED: Aspirin 81 MG Tab.EC PO SCH (09:00)
[2020-04-09] MEDS ORDERED: Enoxaparin 40 MG/0.4 ML Syringe SUBCUT SCH (09:00)
[2020-04-09] MEDS: Levothyroxine 50 MCG Tab PO SCH (09:53)
[2020-04-09] MEDS: Enoxaparin 40 MG/0.4 ML Syringe SUBCUT SCH ×2 (09:58→20:22)
[2020-04-09] MEDS ORDERED: Potassium Chloride 20 MEQ Tab.ER PO ONE (11:00)
[2020-04-09] MEDS: Dexamethasone 2 MG Tab PO SCH (13:24)
[2020-04-09] MEDS: REMDESIVIR 100 MG in Sodium Chloride 0.9% 100 ML IV SCH (13:28)
[2020-04-09] MEDS: Aspirin 81 MG Tab.EC PO SCH (20:21)
[2020-04-09] MEDS: Metoprolol Tartrate 25 MG Tab PO SCH (20:21)
[2020-04-10] MEDS: guaiFENesin/Dextromethorphan 100-10 MG/5 ML Soln 10 ML Cup PO PRN (05:47)
[2020-04-10] MEDS: Enoxaparin 40 MG/0.4 ML Syringe SUBCUT SCH ×2 (09:00→20:42)
[2020-04-10] MEDS: Levothyroxine 50 MCG Tab PO SCH (09:00)
[2020-04-10] MEDS: Metoprolol Tartrate 25 MG Tab PO SCH ×2 (09:00→20:42)
--- NOTE | 2020-04-10 10:40 | PCM.PN ---
- General Info Date of Service: 04/10/20 Subjective Update: No acute events overnight. Shortness of breath seems a little better today. She continues to require 15 L of high flow nasal cannula but feels less short of breath today. She does desaturate with activity and takes a few minutes to recover. No headache, muscle aches or chest pain. No fevers. Tolerating steroids, plasma and remdesivir so far. She is able to get from the bed to the chair and oxygenates a little bit better when she sitting up. Functional Status: Reports: Pain Controlled, Tolerating Diet - Review of Systems General: Reports: Weakness. Denies: Fever Pulmonary: Reports: Shortness of Breath - Patient Data Vitals - Most Recent: Last Vital Signs Temp 35.6 C L 04/10/20 05:00 Pulse 54 L 04/10/20 08:00 Resp 21 H 04/10/20 08:00 BP 155/82 H 04/10/20 08:00 Pulse Ox 91 L 04/10/20 08:00 Weight - Most Recent: 150.593 kg I&O - Last 24 Hours: Intake & Output 04/09/20 04/10/20 04/10/20 22:59 06:59 14:59 Intake Total 643 Output Total 300 Balance 343 Lab Results Last 24 Hours: Laboratory Results - last 24 hr 04/08/20 Range/Units 17:38 Blood Type O POSITIVE Med Orders - Current: Current Medications Acetaminophen (Tylenol) 650 mg PO Q4H PRN PRN Reason: Pain (Mild 1-3)/fever Last Admin: 04/08/20 19:57 Dose: 650 mg Documented by: Aspirin (Halfprin) 81 mg PO BEDTIME [facility] Last Admin: 04/09/20 20:21 Dose: 81 mg Documented by: Benzocaine/Menthol (Cepacol Sore Throat) 1 lozenge MUCMEM Q1H PRN PRN Reason: Sore Throat Last Admin: 04/09/20 02:24 Dose: 1 elijah Documented by: Benzonatate (Tessalon Perles) 100 mg PO TID PRN PRN Reason: Cough Dexamethasone (Dexamethasone) 6 mg PO Q24H [facility] Stop: 04/17/20 13:01 Last Admin: 04/09/20 13:24 Dose: 6 mg Documented by: Enoxaparin Sodium (Lovenox) 40 mg SUBCUT BID [facility] Last Admin: 04/09/20 20:22 Dose: 40 mg Documented by: Guaifenesin/Dextromethorphan (Robitussin Dm) 10 ml PO Q4H PRN PRN Reason: Cough Last Admin: 04/10/20 05:47 Dose: 10 ml Documented by: Remdesivir 100 mg/ Sodium (Chloride) 100 mls @ 100 mls/hr IV Q24H [facility] Stop: 04/12/20 14:59 Last Admin: 04/09/20 13:28 Dose: 100 mls/hr Documented by: Levothyroxine Sodium (Synthroid) 175 mcg PO DAILY [facility] Last Admin: 04/09/20 09:53 Dose: 175 mcg Documented by: Magnesium Hydroxide (Milk Of Magnesia) 30 ml PO Q12H PRN PRN Reason: Constipation Melatonin (Melatonin) 9 mg PO BEDTIME PRN PRN Reason: Sleep Metoprolol Tartrate (Lopressor) 25 mg PO BID [facility] Last Admin: 04/09/20 20:21 Dose: Not Given Documented by: Ondansetron HCl (Zofran) 4 mg IV Q6H PRN PRN Reason: Nausea/Vomiting Ondansetron HCl (Zofran Odt) 4 mg PO Q6H PRN PRN Reason: Nausea able to take PO Prochlorperazine Maleate (Compazine) 10 mg PO Q6H PRN PRN Reason: Nausea/Vomiting Senna/Docusate Sodium (Senna Plus) 1 tab PO BID PRN PRN Reason: Constipation Sodium Chloride (Saline Flush) 10 ml FLUSH ASDIRECTED PRN PRN Reason: Keep Vein Open Last Admin: 04/08/20 13:47 Dose: 10 ml Documented by: Discontinued Medications Acetaminophen (Tylenol) 650 mg PO Q4H PRN PRN Reason: Fever Greater Than 101 Aspirin (Halfprin) 81 mg PO DAILY [facility] Dexamethasone (Decadron) 6 mg IVPUSH DAILY [facility] Stop: 04/17/20 09:01 Last Admin: 04/08/20 13:43 Dose: 6 mg Documented by: Enoxaparin Sodium (Lovenox) 40 mg SUBCUT DAILY [facility] Remdesivir 200 mg/ Sodium (Chloride) 250 mls @ 250 mls/hr IV ONETIME ONE Stop: 04/08/20 14:59 Last Admin: 04/08/20 14:16 Dose: 250 mls/hr Documented by: Potassium Chloride (Klor-Con M20) 40 meq PO ONETIME ONE Stop: 04/09/20 11:01 Last Admin: 04/09/20 13:24 Dose: 40 meq Documented by: - Exam Quality Assessment: Supplemental Oxygen General: Alert, Oriented, Cooperative, No Acute Distress Lungs: Normal Respiratory Effort, Crackles (mild fine crackles in both bases) Cardiovascular: Regular Rhythm, Bradycardia GI/Abdominal Exam: Soft, No Distention Extremities: No Pedal Edema. No: Increased Warmth Skin: Warm, Dry Psy/Mental Status: Alert, Normal Affect Sepsis Event Note - Evaluation Sepsis Screening Result: No Definite Risk - Focused Exam Vital Signs: Vital Signs Temp Pulse Resp BP Pulse Ox 04/10/20 08:00 54 L 21 H 155/82 H 91 L 04/10/20 07:00 53 L 26 H 152/75 H 92 L 04/10/20 06:00 26 H 150/74 H 90 L 04/10/20 05:00 35.6 C L 28 H 156/75 H 92 L 04/10/20 04:00 20 149/77 H 93 L 04/10/20 03:00 28 H 145/73 H 91 L 04/10/20 02:00 21 H 143/75 H 93 L 04/10/20 01:00 22 H 148/76 H 93 L 04/10/20 00:00 36.7 C 28 H 149/82 H 93 L 04/09/20 23:00 27 H 116/60 90 L - Problem List & Annotations (1) Pneumonia due to COVID-19 virus SNOMED Code(s): 902297630144514514 Code(s): U07.1 - COVID-19; J12.89 - OTHER VIRAL PNEUMONIA Status: Acute Current Visit: Yes (2) Acute respiratory failure with hypoxia SNOMED Code(s): 49541461, 576894496 Code(s): J96.01 - ACUTE RESPIRATORY FAILURE WITH HYPOXIA Status: Acute Current Visit: Yes (3) Paroxysmal atrial fibrillation SNOMED Code(s): 854830365 Code(s): I48.0 - PAROXYSMAL ATRIAL FIBRILLATION Status: Chronic Current Visit: Yes (4) Essential hypertension SNOMED Code(s): 90374784 Code(s): I10 - ESSENTIAL (PRIMARY) HYPERTENSION Status: Chronic Current Visit: Yes - Problem List Review Problem List Initiated/Reviewed/Updated: Yes - My Orders Last 24 Hours: My Active Orders 04/09/20 13:00 dexAMETHasone 6 mg PO Q24H 04/09/20 14:00 Remdesivir (Eua) [Remdesivir (EUA)] 100 mg Sodium Chloride 0.9% [Normal Saline] 100 ml IV Q24H 04/09/20 17:00 Transfuse Fresh Frozen Plasma [COMM] Routine 04/10/20 17:00 Transfuse Fresh Frozen Plasma [COMM] Routine 04/11/20 05:00 C-REACTIVE PROTEIN [CHEM] Timed CBC W/O DIFF,HEMOGRAM [HEME] Timed (1) COMPREHENSIVE METABOLIC PN,CMP [CHEM] Timed D-DIMER QUANTITATIVE [COAG] Timed FERRITIN [CHEM] Timed - Plan Plan:: ASSESSMENT AND PLAN - Pneumonia due to COVID-19 infection-complicated by acute respiratory failure with hypoxia. Stable to slightly improved today. Tolerating treatment modalities so far. Feeling a little better today but still quite compromised. -Supplemental oxygen -Symptomatic management -Dexamethasone 6 mg daily for 10 days (start 04/08) -Remdesivir x5 days (3 of 5) -Convalescent plasma x3 days (3 of 3) -Daily CMP and CBC -D-dimer and CRP every other day unless worsening -Isolation Paroxysmal atrial fibrillation-currently in sinus rhythm. -Continue beta-teresita Essential hypertension-blood pressure on the lower side. -Holding antihypertensives Maintenance issues - - DVT prophylaxis -enoxaparin BID - GI prophylaxis -not indicated - Nutrition -regular diet Disposition -anticipate discharge home after the hospital stay Primary care physician - Rae Feng M.D.
[2020-04-10] MEDS: Dexamethasone 2 MG Tab PO SCH (13:48)
[2020-04-10] MEDS: REMDESIVIR 100 MG in Sodium Chloride 0.9% 100 ML IV SCH (13:49)
[2020-04-10] MEDS: Aspirin 81 MG Tab.EC PO SCH (20:42)
[2020-04-11] MEDS: Enoxaparin 40 MG/0.4 ML Syringe SUBCUT SCH ×2 (09:34→20:24)
[2020-04-11] MEDS: Metoprolol Tartrate 25 MG Tab PO SCH ×2 (09:34→20:22)
[2020-04-11] MEDS: Levothyroxine 50 MCG Tab PO SCH (09:34)
--- NOTE | 2020-04-11 10:14 | PCM.PN ---
- General Info Date of Service: 04/11/20 Subjective Update: No acute events overnight. She had a good day yesterday. Shortness of breath is a little better. She is able to talk a little more with less desaturation. No chest pain or abdominal pain. Cough is still dry and annoying. No fevers. Inflammatory markers are better. Functional Status: Reports: Pain Controlled, Tolerating Diet - Review of Systems General: Reports: Weakness. Denies: Fever Pulmonary: Reports: Shortness of Breath - Patient Data Vitals - Most Recent: Last Vital Signs Temp 34.3 C L 04/11/20 09:00 Pulse 59 L 04/11/20 10:00 Resp 27 H 04/11/20 10:00 BP 126/52 L 04/11/20 10:00 Pulse Ox 90 L 04/11/20 10:00 Weight - Most Recent: 150.593 kg I&O - Last 24 Hours: Intake & Output 04/10/20 04/11/20 04/11/20 22:59 06:59 14:59 Intake Total 784 Balance 784 Lab Results Last 24 Hours: Laboratory Results - last 24 hr 04/08/20 04/11/20 04/11/20 Range/Units 17:38 05:00 05:40 WBC 5.3 (4.5-11.0) K/uL RBC 4.84 (3.30-5.50) M/uL Hgb 13.9 (12.0-15.0) g/dL Hct 43.6 (36.0-48.0) % MCV 90 (80-98) fL MCH 29 (27-31) pg MCHC 32 (32-36) % Plt Count 267 (150-400) K/uL D-Dimer, Quantitative (0.0-500.0) ng/mL Sodium 141 (140-148) mmol/L Potassium 4.0 (3.6-5.2) mmol/L Chloride 101 (100-108) mmol/L Carbon Dioxide 32 (21-32) mmol/L Anion Gap 8.1 (5.0-14.0) mmol/L BUN 14 (7-18) mg/dL Creatinine 0.8 (0.6-1.0) mg/dL Est Cr Clr Drug Dosing 73.63 mL/min Estimated GFR (MDRD) > 60 (>60) Glucose 157 H (74-106) mg/dL Calcium 8.3 L (8.5-10.1) mg/dL Ferritin 568 H (8-388) ng/ml Total Bilirubin 0.4 (0.2-1.0) mg/dL AST 48 H (15-37) U/L ALT 42 (12-78) U/L Alkaline Phosphatase 80 (46-116) U/L C-Reactive Protein 1.38 H (0.0-0.3) mg/dL Total Protein 6.3 L (6.4-8.2) g/dL Albumin 2.4 L (3.4-5.0) g/dL Globulin 3.9 H (2.3-3.5) g/dL Albumin/Globulin Ratio 0.6 L (1.2-2.2) Blood Type O POSITIVE 04/11/20 Range/Units 06:00 WBC (4.5-11.0) K/uL RBC (3.30-5.50) M/uL Hgb (12.0-15.0) g/dL Hct (36.0-48.0) % MCV (80-98) fL MCH (27-31) pg MCHC (32-36) % Plt Count (150-400) K/uL D-Dimer, Quantitative 1015.06 H (0.0-500.0) ng/mL Sodium (140-148) mmol/L Potassium (3.6-5.2) mmol/L Chloride (100-108) mmol/L Carbon Dioxide (21-32) mmol/L Anion Gap (5.0-14.0) mmol/L BUN (7-18) mg/dL Creatinine (0.6-1.0) mg/dL Est Cr Clr Drug Dosing mL/min Estimated GFR (MDRD) (>60) Glucose (74-106) mg/dL Calcium (8.5-10.1) mg/dL Ferritin (8-388) ng/ml Total Bilirubin (0.2-1.0) mg/dL AST (15-37) U/L ALT (12-78) U/L Alkaline Phosphatase (46-116) U/L C-Reactive Protein (0.0-0.3) mg/dL Total Protein (6.4-8.2) g/dL Albumin (3.4-5.0) g/dL Globulin (2.3-3.5) g/dL Albumin/Globulin Ratio (1.2-2.2) Blood Type Med Orders - Current: Current Medications Acetaminophen (Tylenol) 650 mg PO Q4H PRN PRN Reason: Pain (Mild 1-3)/fever Last Admin: 04/08/20 19:57 Dose: 650 mg Documented by: Aspirin (Halfprin) 81 mg PO BEDTIME [facility] Last Admin: 04/10/20 20:42 Dose: 81 mg Documented by: Benzocaine/Menthol (Cepacol Sore Throat) 1 lozenge MUCMEM Q1H PRN PRN Reason: Sore Throat Last Admin: 04/09/20 02:24 Dose: 1 elijah Documented by: Benzonatate (Tessalon Perles) 100 mg PO TID PRN PRN Reason: Cough Dexamethasone (Dexamethasone) 6 mg PO Q24H [facility] Stop: 04/17/20 13:01 Last Admin: 04/10/20 13:48 Dose: 6 mg Documented by: Enoxaparin Sodium (Lovenox) 40 mg SUBCUT BID [facility] Last Admin: 04/11/20 09:34 Dose: 40 mg Documented by: Guaifenesin/Dextromethorphan (Robitussin Dm) 10 ml PO Q4H PRN PRN Reason: Cough Last Admin: 04/10/20 05:47 Dose: 10 ml Documented by: Remdesivir 100 mg/ Sodium (Chloride) 100 mls @ 100 mls/hr IV Q24H [facility] Stop: 04/12/20 14:59 Last Admin: 04/10/20 13:49 Dose: 100 mls/hr Documented by: Levothyroxine Sodium (Synthroid) 175 mcg PO DAILY [facility] Last Admin: 04/11/20 09:34 Dose: 175 mcg Documented by: Magnesium Hydroxide (Milk Of Magnesia) 30 ml PO Q12H PRN PRN Reason: Constipation Melatonin (Melatonin) 9 mg PO BEDTIME PRN PRN Reason: Sleep Metoprolol Tartrate (Lopressor) 12.5 mg PO BID [facility] Last Admin: 04/11/20 09:34 Dose: 12.5 mg Documented by: Ondansetron HCl (Zofran) 4 mg IV Q6H PRN PRN Reason: Nausea/Vomiting Ondansetron HCl (Zofran Odt) 4 mg PO Q6H PRN PRN Reason: Nausea able to take PO Prochlorperazine Maleate (Compazine) 10 mg PO Q6H PRN PRN Reason: Nausea/Vomiting Senna/Docusate Sodium (Senna Plus) 1 tab PO BID PRN PRN Reason: Constipation Sodium Chloride (Saline Flush) 10 ml FLUSH ASDIRECTED PRN PRN Reason: Keep Vein Open Last Admin: 04/08/20 13:47 Dose: 10 ml Documented by: Discontinued Medications Acetaminophen (Tylenol) 650 mg PO Q4H PRN PRN Reason: Fever Greater Than 101 Aspirin (Halfprin) 81 mg PO DAILY [facility] Dexamethasone (Decadron) 6 mg IVPUSH DAILY [facility] Stop: 04/17/20 09:01 Last Admin: 04/08/20 13:43 Dose: 6 mg Documented by: Enoxaparin Sodium (Lovenox) 40 mg SUBCUT DAILY [facility] Remdesivir 200 mg/ Sodium (Chloride) 250 mls @ 250 mls/hr IV ONETIME ONE Stop: 04/08/20 14:59 Last Admin: 04/08/20 14:16 Dose: 250 mls/hr Documented by: Metoprolol Tartrate (Lopressor) 25 mg PO BID [facility] Last Admin: 04/10/20 20:42 Dose: 25 mg Documented by: Potassium Chloride (Klor-Con M20) 40 meq PO ONETIME ONE Stop: 04/09/20 11:01 Last Admin: 04/09/20 13:24 Dose: 40 meq Documented by: - Exam Quality Assessment: Supplemental Oxygen General: Alert, Oriented, Cooperative, No Acute Distress Lungs: Clear to Auscultation, Normal Respiratory Effort, Decreased Breath Sounds (mild at bases) Cardiovascular: Regular Rate, Regular Rhythm GI/Abdominal Exam: Soft, No Distention Extremities: No Pedal Edema. No: Increased Warmth Skin: Warm, Dry Psy/Mental Status: Alert, Normal Affect Sepsis Event Note - Evaluation Sepsis Screening Result: Sepsis Risk - Focused Exam Vital Signs: Vital Signs Temp Pulse Pulse Resp BP BP Pulse Ox 04/11/20 10:00 59 L 27 H 126/52 L 90 L 04/11/20 09:34 55 L 149/66 H 04/11/20 09:00 34.3 C L 45 L 31 H 149/66 H 93 L 04/11/20 08:00 43 L 28 H 141/67 H 91 L 04/11/20 07:00 42 L 31 H 136/69 89 L 04/11/20 06:00 50 L 26 H 139/66 90 L 04/11/20 05:00 43 L 28 H 140/64 92 L 04/11/20 04:00 34.9 C L 39 L 30 H 137/64 92 L 04/11/20 03:00 46 L 24 H 139/60 95 04/11/20 02:00 40 L 32 H 142/63 H 89 L 04/11/20 01:00 42 L 26 H 141/68 H 94 L 04/11/20 00:50 85 L 04/11/20 00:00 35.0 C L 45 L 23 H 145/66 H 91 L 04/10/20 23:00 47 L 29 H 138/65 89 L - Problem List & Annotations (1) Pneumonia due to COVID-19 virus SNOMED Code(s): 121961135522911388 Code(s): U07.1 - COVID-19; J12.89 - OTHER VIRAL PNEUMONIA Status: Acute Current Visit: Yes (2) Acute respiratory failure with hypoxia SNOMED Code(s): 65768642, 677441218 Code(s): J96.01 - ACUTE RESPIRATORY FAILURE WITH HYPOXIA Status: Acute Current Visit: Yes (3) Paroxysmal atrial fibrillation SNOMED Code(s): 848291811 Code(s): I48.0 - PAROXYSMAL ATRIAL FIBRILLATION Status: Chronic Current Visit: Yes (4) Essential hypertension SNOMED Code(s): 16070952 Code(s): I10 - ESSENTIAL (PRIMARY) HYPERTENSION Status: Chronic Current Visit: Yes - Problem List Review Problem List Initiated/Reviewed/Updated: Yes - My Orders Last 24 Hours: My Active Orders 04/10/20 17:00 Transfuse Fresh Frozen Plasma [COMM] Routine 04/11/20 09:30 Metoprolol Tartrate [Lopressor] 12.5 mg PO BID 04/12/20 05:00 COMPREHENSIVE METABOLIC PN,CMP [CHEM] Timed - Plan Plan:: ASSESSMENT AND PLAN - Pneumonia due to COVID-19 infection-complicated by acute respiratory failure with hypoxia. Down to 10 L of supplemental oxygen. Inflammatory markers are better. Tolerating treatment so far. -Supplemental oxygen -Symptomatic management -Dexamethasone 6 mg daily for 10 days (start 04/08) -Remdesivir x5 days (4 of 5) -Convalescent plasma x3 days (complete) -Daily CMP and CBC -D-dimer and CRP every other day unless worsening -Isolation Paroxysmal atrial fibrillation-currently in sinus rhythm. -Continue beta-teresita Essential hypertension-blood pressure acceptable but she has been mildly bradycardic. -Continue metoprolol with slight dose reduction Maintenance issues - - DVT prophylaxis -enoxaparin BID - GI prophylaxis -not indicated - Nutrition -regular diet Disposition -anticipate discharge home after the hospital stay Primary care physician - Rae Feng M.D.
[2020-04-11] MEDS: REMDESIVIR 100 MG in Sodium Chloride 0.9% 100 ML IV SCH (13:32)
[2020-04-11] MEDS: Dexamethasone 2 MG Tab PO SCH (13:33)
[2020-04-11] MEDS: Aspirin 81 MG Tab.EC PO SCH (20:23)
[2020-04-12] MEDS: Enoxaparin 40 MG/0.4 ML Syringe SUBCUT SCH ×2 (08:53→21:06)
[2020-04-12] MEDS: Levothyroxine 50 MCG Tab PO SCH (08:53)
[2020-04-12] MEDS: Dexamethasone 2 MG Tab PO SCH (13:02)
[2020-04-12] MEDS: REMDESIVIR 100 MG in Sodium Chloride 0.9% 100 ML IV SCH (13:02)
--- NOTE | 2020-04-12 13:52 | PCM.PN ---
- General Info Date of Service: 04/12/20 Subjective Update: Ms. Webster has felt modestly improved over the last 24 hours, appetite and overall energy seem to be better. She continues to experience significant respiratory compromise and requires high flow oxygen via nasal cannula to maintain adequate oxygenation. Overall oxygen use has decreased over the past 2 days. Functional Status: Reports: Tolerating Diet, Urinating - Review of Systems General: Reports: Weakness, Fatigue. Denies: Fever, Chills Pulmonary: Reports: Shortness of Breath, Cough. Denies: Pleuritic Chest Pain, Sputum, Hemoptysis, Wheezing Cardiovascular: Reports: Dyspnea on Exertion. Denies: Chest Pain, Palpitations, Orthopnea, PND, Edema, Lightheadedness Gastrointestinal: Reports: No Symptoms - Patient Data Vitals - Most Recent: Last Vital Signs Temp 92.6 F L 04/12/20 08:00 Pulse 53 L 04/12/20 13:30 Resp 19 04/12/20 13:30 BP 132/66 04/12/20 13:30 Pulse Ox 95 04/12/20 13:30 Weight - Most Recent: 332 lb Lab Results Last 24 Hours: Laboratory Results - last 24 hr 04/12/20 Range/Units 05:59 Sodium 141 (140-148) mmol/L Potassium 4.1 (3.6-5.2) mmol/L Chloride 102 (100-108) mmol/L Carbon Dioxide 32 (21-32) mmol/L Anion Gap 6.7 (5.0-14.0) mmol/L BUN 15 (7-18) mg/dL Creatinine 0.8 (0.6-1.0) mg/dL Est Cr Clr Drug Dosing 73.63 mL/min Estimated GFR (MDRD) > 60 (>60) Glucose 170 H (74-106) mg/dL Calcium 8.2 L (8.5-10.1) mg/dL Total Bilirubin 0.4 (0.2-1.0) mg/dL AST 36 (15-37) U/L ALT 41 (12-78) U/L Alkaline Phosphatase 80 (46-116) U/L Total Protein 6.0 L (6.4-8.2) g/dL Albumin 2.4 L (3.4-5.0) g/dL Globulin 3.6 H (2.3-3.5) g/dL Albumin/Globulin Ratio 0.7 L (1.2-2.2) Med Orders - Current: Current Medications Acetaminophen (Tylenol) 650 mg PO Q4H PRN PRN Reason: Pain (Mild 1-3)/fever Last Admin: 04/08/20 19:57 Dose: 650 mg Documented by: Aspirin (Halfprin) 81 mg PO BEDTIME [facility] Last Admin: 04/11/20 20:23 Dose: 81 mg Documented by: Benzocaine/Menthol (Cepacol Sore Throat) 1 lozenge MUCMEM Q1H PRN PRN Reason: Sore Throat Last Admin: 04/09/20 02:24 Dose: 1 elijah Documented by: Benzonatate (Tessalon Perles) 100 mg PO TID PRN PRN Reason: Cough Dexamethasone (Dexamethasone) 6 mg PO Q24H [facility] Stop: 04/17/20 13:01 Last Admin: 04/12/20 13:02 Dose: 6 mg Documented by: Enoxaparin Sodium (Lovenox) 40 mg SUBCUT BID [facility] Last Admin: 04/12/20 08:53 Dose: 40 mg Documented by: Guaifenesin/Dextromethorphan (Robitussin Dm) 10 ml PO Q4H PRN PRN Reason: Cough Last Admin: 04/10/20 05:47 Dose: 10 ml Documented by: Remdesivir 100 mg/ Sodium (Chloride) 100 mls @ 100 mls/hr IV Q24H [facility] Stop: 04/12/20 14:59 Last Admin: 04/12/20 13:02 Dose: 100 mls/hr Documented by: Levothyroxine Sodium (Synthroid) 175 mcg PO DAILY [facility] Last Admin: 04/12/20 08:53 Dose: 175 mcg Documented by: Magnesium Hydroxide (Milk Of Magnesia) 30 ml PO Q12H PRN PRN Reason: Constipation Last Admin: 04/12/20 08:53 Dose: 30 ml Documented by: Melatonin (Melatonin) 9 mg PO BEDTIME PRN PRN Reason: Sleep Ondansetron HCl (Zofran) 4 mg IV Q6H PRN PRN Reason: Nausea/Vomiting Ondansetron HCl (Zofran Odt) 4 mg PO Q6H PRN PRN Reason: Nausea able to take PO Prochlorperazine Maleate (Compazine) 10 mg PO Q6H PRN PRN Reason: Nausea/Vomiting Senna/Docusate Sodium (Senna Plus) 1 tab PO BID PRN PRN Reason: Constipation Last Admin: 04/12/20 08:52 Dose: 1 tab Documented by: Sodium Chloride (Saline Flush) 10 ml FLUSH ASDIRECTED PRN PRN Reason: Keep Vein Open Last Admin: 04/08/20 13:47 Dose: 10 ml Documented by: Discontinued Medications Acetaminophen (Tylenol) 650 mg PO Q4H PRN PRN Reason: Fever Greater Than 101 Aspirin (Halfprin) 81 mg PO DAILY [facility] Dexamethasone (Decadron) 6 mg IVPUSH DAILY [facility] Stop: 04/17/20 09:01 Last Admin: 04/08/20 13:43 Dose: 6 mg Documented by: Enoxaparin Sodium (Lovenox) 40 mg SUBCUT DAILY [facility] Remdesivir 200 mg/ Sodium (Chloride) 250 mls @ 250 mls/hr IV ONETIME ONE Stop: 04/08/20 14:59 Last Admin: 04/08/20 14:16 Dose: 250 mls/hr Documented by: Metoprolol Tartrate (Lopressor) 25 mg PO BID [facility] Last Admin: 04/10/20 20:42 Dose: 25 mg Documented by: Metoprolol Tartrate (Lopressor) 12.5 mg PO BID [facility] Last Admin: 04/11/20 20:22 Dose: 12.5 mg Documented by: Potassium Chloride (Klor-Con M20) 40 meq PO ONETIME ONE Stop: 04/09/20 11:01 Last Admin: 04/09/20 13:24 Dose: 40 meq Documented by: - Exam Quality Assessment: Supplemental Oxygen, DVT Prophylaxis General: Alert, Oriented, Cooperative, Moderate Distress Lungs: Rales. No: Decreased Breath Sounds, Rhonchi, Rub, Wheezing Cardiovascular: Regular Rate, Regular Rhythm, No Murmurs GI/Abdominal Exam: Soft, Non-Tender, No Organomegaly, No Distention Extremities: Non-Tender, No Pedal Edema Sepsis Event Note - Evaluation Sepsis Screening Result: Sepsis Risk - Focused Exam Vital Signs: Vital Signs Temp Pulse Resp BP Pulse Ox 04/12/20 13:30 53 L 19 132/66 95 04/12/20 10:00 122 H 18 140/76 95 04/12/20 08:00 92.6 F L 52 L 21 H 116/56 L 92 L 04/12/20 06:00 36 L 22 H 103/61 91 L 04/12/20 04:00 39 L 24 H 116/52 L 92 L 04/12/20 02:00 41 L 28 H 125/56 L 96 - Problem List Review Problem List Initiated/Reviewed/Updated: Yes - My Orders Last 24 Hours: My Active Orders 04/13/20 05:00 CBC WITH AUTO DIFF [HEME] Timed COMPREHENSIVE METABOLIC PN,CMP [CHEM] Timed 04/13/20 05:11 CRP [C-REACTIVE PROTEIN] [CHEM] AM D Dimer [D-DIMER QUANTITATIVE] [COAG] AM - Plan Plan:: ASSESSMENT AND PLAN - Pneumonia due to COVID-19 infection-complicated by acute respiratory failure with hypoxia. Improvement in oxygen requirement over the last 48 hours -Supplemental oxygen -Symptomatic management -Dexamethasone 6 mg daily for 10 days (start 04/08) -Remdesivir x5 days (5 of 5) -Convalescent plasma x3 days (complete) -Daily CMP and CBC -D-dimer and CRP every other day unless worsening -Isolation Paroxysmal atrial fibrillation-currently in sinus rhythm. -Continue beta-teresita Essential hypertension-blood pressure acceptable but she has been bradycardic. -Discontinue metoprolol Maintenance issues - - DVT prophylaxis -enoxaparin BID - GI prophylaxis -not indicated - Nutrition -regular diet Disposition -anticipate discharge home after the hospital stay Primary care physician - Rae Devine NP
[2020-04-12] MEDS: Aspirin 81 MG Tab.EC PO SCH (21:06)
[2020-04-13] MEDS: Enoxaparin 40 MG/0.4 ML Syringe SUBCUT SCH ×2 (08:04→21:19)
[2020-04-13] MEDS: Levothyroxine 50 MCG Tab PO SCH (08:04)
--- NOTE | 2020-04-13 12:21 | PCM.PN ---
- General Info Date of Service: 04/13/20 Subjective Update: Ms. Perla has been stable over the last 24 hours and actually has shown good improvement in her respiratory status with better oxygenation and requiring less supplemental oxygen. Sense of taste and smell have returned, as has her appetite. Vital signs have remained stable and she has been afebrile. Functional Status: Reports: Tolerating Diet, Urinating - Review of Systems General: Reports: Weakness, Fatigue. Denies: Fever, Chills Pulmonary: Reports: Shortness of Breath, Cough. Denies: Pleuritic Chest Pain, Sputum, Hemoptysis, Wheezing Cardiovascular: Reports: Dyspnea on Exertion. Denies: Chest Pain, Palpitations, Orthopnea, PND, Edema, Lightheadedness Gastrointestinal: Reports: No Symptoms - Patient Data Vitals - Most Recent: Last Vital Signs Temp 97.9 F 04/13/20 10:00 Pulse 54 L 04/13/20 12:00 Resp 20 04/13/20 12:00 BP 132/57 L 04/13/20 12:00 Pulse Ox 94 L 04/13/20 12:00 Weight - Most Recent: 332 lb Lab Results Last 24 Hours: Laboratory Results - last 24 hr 04/13/20 04/13/20 04/13/20 Range/Units 04:53 04:53 04:53 WBC 6.4 (4.5-11.0) K/uL RBC 4.65 (3.30-5.50) M/uL Hgb 13.6 (12.0-15.0) g/dL Hct 41.7 (36.0-48.0) % MCV 90 (80-98) fL MCH 29 (27-31) pg MCHC 33 (32-36) % Plt Count 298 (150-400) K/uL Neut % (Auto) 75 H (36-66) % Lymph % (Auto) 13 L (24-44) % [place] % (Auto) 12 H (2-6) % Eos % (Auto) 0 L (2-4) % Baso % (Auto) 1 (0-1) % D-Dimer, Quantitative (0.0-500.0) ng/mL Sodium 139 L (140-148) mmol/L Potassium 4.4 (3.6-5.2) mmol/L Chloride 103 (100-108) mmol/L Carbon Dioxide 31 (21-32) mmol/L Anion Gap 9.4 (5.0-14.0) mmol/L BUN 16 (7-18) mg/dL Creatinine 0.8 (0.6-1.0) mg/dL Est Cr Clr Drug Dosing 73.63 mL/min Estimated GFR (MDRD) > 60 (>60) Glucose 202 H (74-106) mg/dL Calcium 8.3 L (8.5-10.1) mg/dL Total Bilirubin 0.5 (0.2-1.0) mg/dL AST 26 (15-37) U/L ALT 38 (12-78) U/L Alkaline Phosphatase 73 (46-116) U/L C-Reactive Protein < 0.05 (0.0-0.3) mg/dL Total Protein 5.9 L (6.4-8.2) g/dL Albumin 2.3 L (3.4-5.0) g/dL Globulin 3.6 H (2.3-3.5) g/dL Albumin/Globulin Ratio 0.6 L (1.2-2.2) 04/13/20 Range/Units 05:11 WBC (4.5-11.0) K/uL RBC (3.30-5.50) M/uL Hgb (12.0-15.0) g/dL Hct (36.0-48.0) % MCV (80-98) fL MCH (27-31) pg MCHC (32-36) % Plt Count (150-400) K/uL Neut % (Auto) (36-66) % Lymph % (Auto) (24-44) % [place] % (Auto) (2-6) % Eos % (Auto) (2-4) % Baso % (Auto) (0-1) % D-Dimer, Quantitative 884.12 H (0.0-500.0) ng/mL Sodium (140-148) mmol/L Potassium (3.6-5.2) mmol/L Chloride (100-108) mmol/L Carbon Dioxide (21-32) mmol/L Anion Gap (5.0-14.0) mmol/L BUN (7-18) mg/dL Creatinine (0.6-1.0) mg/dL Est Cr Clr Drug Dosing mL/min Estimated GFR (MDRD) (>60) Glucose (74-106) mg/dL Calcium (8.5-10.1) mg/dL Total Bilirubin (0.2-1.0) mg/dL AST (15-37) U/L ALT (12-78) U/L Alkaline Phosphatase (46-116) U/L C-Reactive Protein (0.0-0.3) mg/dL Total Protein (6.4-8.2) g/dL Albumin (3.4-5.0) g/dL Globulin (2.3-3.5) g/dL Albumin/Globulin Ratio (1.2-2.2) Med Orders - Current: Current Medications Acetaminophen (Tylenol) 650 mg PO Q4H PRN PRN Reason: Pain (Mild 1-3)/fever Last Admin: 04/08/20 19:57 Dose: 650 mg Documented by: Aspirin (Halfprin) 81 mg PO BEDTIME [facility] Last Admin: 04/12/20 21:06 Dose: 81 mg Documented by: Benzocaine/Menthol (Cepacol Sore Throat) 1 lozenge MUCMEM Q1H PRN PRN Reason: Sore Throat Last Admin: 04/09/20 02:24 Dose: 1 elijah Documented by: Benzonatate (Tessalon Perles) 100 mg PO TID PRN PRN Reason: Cough Dexamethasone (Dexamethasone) 6 mg PO Q24H [facility] Stop: 04/17/20 13:01 Last Admin: 04/12/20 13:02 Dose: 6 mg Documented by: Enoxaparin Sodium (Lovenox) 40 mg SUBCUT BID [facility] Last Admin: 04/13/20 08:04 Dose: 40 mg Documented by: Guaifenesin/Dextromethorphan (Robitussin Dm) 10 ml PO Q4H PRN PRN Reason: Cough Last Admin: 04/10/20 05:47 Dose: 10 ml Documented by: Levothyroxine Sodium (Levothyroxine) 75 mcg PO ACBREAKFAST [facility] Levothyroxine Sodium (Synthroid) 100 mcg PO ACBREAKFAST [facility] Magnesium Hydroxide (Milk Of Magnesia) 30 ml PO Q12H PRN PRN Reason: Constipation Last Admin: 04/12/20 08:53 Dose: 30 ml Documented by: Melatonin (Melatonin) 9 mg PO BEDTIME PRN PRN Reason: Sleep Ondansetron HCl (Zofran) 4 mg IV Q6H PRN PRN Reason: Nausea/Vomiting Ondansetron HCl (Zofran Odt) 4 mg PO Q6H PRN PRN Reason: Nausea able to take PO Prochlorperazine Maleate (Compazine) 10 mg PO Q6H PRN PRN Reason: Nausea/Vomiting Senna/Docusate Sodium (Senna Plus) 1 tab PO BID PRN PRN Reason: Constipation Last Admin: 04/12/20 21:17 Dose: 1 tab Documented by: Sodium Chloride (Saline Flush) 10 ml FLUSH ASDIRECTED PRN PRN Reason: Keep Vein Open Last Admin: 04/08/20 13:47 Dose: 10 ml Documented by: Discontinued Medications Acetaminophen (Tylenol) 650 mg PO Q4H PRN PRN Reason: Fever Greater Than 101 Aspirin (Halfprin) 81 mg PO DAILY [facility] Dexamethasone (Decadron) 6 mg IVPUSH DAILY [facility] Stop: 04/17/20 09:01 Last Admin: 04/08/20 13:43 Dose: 6 mg Documented by: Enoxaparin Sodium (Lovenox) 40 mg SUBCUT DAILY [facility] Remdesivir 200 mg/ Sodium (Chloride) 250 mls @ 250 mls/hr IV ONETIME ONE Stop: 04/08/20 14:59 Last Admin: 04/08/20 14:16 Dose: 250 mls/hr Documented by: Remdesivir 100 mg/ Sodium (Chloride) 100 mls @ 100 mls/hr IV Q24H [facility] Stop: 04/12/20 14:59 Last Admin: 04/12/20 13:02 Dose: 100 mls/hr Documented by: Levothyroxine Sodium (Synthroid) 175 mcg PO DAILY [facility] Last Admin: 04/13/20 08:04 Dose: 175 mcg Documented by: Metoprolol Tartrate (Lopressor) 25 mg PO BID [facility] Last Admin: 04/10/20 20:42 Dose: 25 mg Documented by: Metoprolol Tartrate (Lopressor) 12.5 mg PO BID [facility] Last Admin: 04/11/20 20:22 Dose: 12.5 mg Documented by: Potassium Chloride (Klor-Con M20) 40 meq PO ONETIME ONE Stop: 04/09/20 11:01 Last Admin: 04/09/20 13:24 Dose: 40 meq Documented by: - Exam Quality Assessment: Supplemental Oxygen, DVT Prophylaxis General: Alert, Oriented, Cooperative, Mild Distress Lungs: Clear to Auscultation, Normal Respiratory Effort Cardiovascular: Regular Rate, Regular Rhythm, No Murmurs GI/Abdominal Exam: Soft, Non-Tender, No Organomegaly, No Distention Extremities: Non-Tender, No Pedal Edema Sepsis Event Note - Evaluation Sepsis Screening Result: Sepsis Risk - Focused Exam Vital Signs: Vital Signs Temp Pulse Resp BP Pulse Ox 04/13/20 12:00 54 L 20 132/57 L 94 L 04/13/20 10:00 97.9 F 67 24 H 129/62 94 L 04/13/20 08:00 51 L 20 141/55 H 96 04/13/20 06:00 41 L 21 H 127/50 L 92 L 04/13/20 04:00 42 L 20 134/68 95 04/13/20 02:00 39 L 22 H 128/59 L 92 L - Problem List Review Problem List Initiated/Reviewed/Updated: Yes - My Orders Last 24 Hours: My Active Orders 04/13/20 12:16 Patient Status [ADT] Routine - Plan Plan:: ASSESSMENT AND PLAN - Pneumonia due to COVID-19 infection-complicated by acute respiratory failure with hypoxia. Improvement in oxygen requirement over the last 72 hours -Supplemental oxygen -Symptomatic management -Dexamethasone 6 mg daily for 10 days (start 04/08) -Remdesivir x5 days, completed -Convalescent plasma x3 days (complete) -Isolation Paroxysmal atrial fibrillation-currently in sinus rhythm. Essential hypertension-blood pressure acceptable but she has been bradycardic. -Discontinue metoprolol Maintenance issues - - DVT prophylaxis -enoxaparin BID - GI prophylaxis -not indicated - Nutrition -regular diet Disposition -anticipate discharge home after the hospital stay Primary care physician - Rae Devine NP
[2020-04-13] MEDS: Dexamethasone 2 MG Tab PO SCH (13:38)
[2020-04-13] MEDS: Aspirin 81 MG Tab.EC PO SCH (21:19)
[2020-04-14] MEDS: Levothyroxine 100 MCG Tab PO SCH (07:30)
[2020-04-14] MEDS: Levothyroxine 25 MCG Tab PO SCH (07:30)
[2020-04-14] MEDS: Enoxaparin 40 MG/0.4 ML Syringe SUBCUT SCH ×2 (09:12→20:23)
--- NOTE | 2020-04-14 12:48 | PCM.PN ---
- General Info Date of Service: 04/14/20 Subjective Update: Ms. Perla has remained stable over the last 24 hours, continues to require 6 L of oxygen per minute via nasal cannula to maintain adequate oxygenation. She is noted improvement in her overall energy level as well as appetite. Subjectively reports less shortness of breath especially with activity. Functional Status: Reports: Tolerating Diet, Ambulating, Urinating - Review of Systems General: Reports: Weakness, Fatigue. Denies: Fever, Chills Pulmonary: Reports: Shortness of Breath. Denies: Pleuritic Chest Pain, Cough, Sputum, Hemoptysis, Wheezing Cardiovascular: Reports: Dyspnea on Exertion. Denies: Chest Pain, Palpitations, Orthopnea, PND, Edema, Lightheadedness Gastrointestinal: Reports: No Symptoms - Patient Data Vitals - Most Recent: Last Vital Signs Temp 97.8 F 04/14/20 11:00 Pulse 65 04/14/20 11:00 Resp 18 04/14/20 11:00 BP 110/50 L 04/14/20 11:00 Pulse Ox 96 04/14/20 11:00 Weight - Most Recent: 332 lb I&O - Last 24 Hours: Intake & Output 04/13/20 04/14/20 04/14/20 22:59 06:59 14:59 Intake Total 498 199 7770 Output Total 300 450 Balance -100 800 950 Med Orders - Current: Current Medications Acetaminophen (Tylenol) 650 mg PO Q4H PRN PRN Reason: Pain (Mild 1-3)/fever Last Admin: 04/08/20 19:57 Dose: 650 mg Documented by: Aspirin (Halfprin) 81 mg PO BEDTIME [facility] Last Admin: 04/13/20 21:19 Dose: 81 mg Documented by: Benzocaine/Menthol (Cepacol Sore Throat) 1 lozenge MUCMEM Q1H PRN PRN Reason: Sore Throat Last Admin: 04/09/20 02:24 Dose: 1 elijah Documented by: Benzonatate (Tessalon Perles) 100 mg PO TID PRN PRN Reason: Cough Dexamethasone (Dexamethasone) 6 mg PO Q24H [facility] Stop: 04/17/20 13:01 Last Admin: 04/13/20 13:38 Dose: 6 mg Documented by: Enoxaparin Sodium (Lovenox) 40 mg SUBCUT BID [facility] Last Admin: 04/14/20 09:12 Dose: 40 mg Documented by: Guaifenesin/Dextromethorphan (Robitussin Dm) 10 ml PO Q4H PRN PRN Reason: Cough Last Admin: 04/10/20 05:47 Dose: 10 ml Documented by: Levothyroxine Sodium (Levothyroxine) 75 mcg PO ACBREAKFAST [facility] Last Admin: 04/14/20 07:30 Dose: 75 mcg Documented by: Levothyroxine Sodium (Synthroid) 100 mcg PO ACBREAKFAST [facility] Last Admin: 04/14/20 07:30 Dose: 100 mcg Documented by: Magnesium Hydroxide (Milk Of Magnesia) 30 ml PO Q12H PRN PRN Reason: Constipation Last Admin: 04/12/20 08:53 Dose: 30 ml Documented by: Melatonin (Melatonin) 9 mg PO BEDTIME PRN PRN Reason: Sleep Ondansetron HCl (Zofran) 4 mg IV Q6H PRN PRN Reason: Nausea/Vomiting Ondansetron HCl (Zofran Odt) 4 mg PO Q6H PRN PRN Reason: Nausea able to take PO Prochlorperazine Maleate (Compazine) 10 mg PO Q6H PRN PRN Reason: Nausea/Vomiting Senna/Docusate Sodium (Senna Plus) 1 tab PO BID PRN PRN Reason: Constipation Last Admin: 04/12/20 21:17 Dose: 1 tab Documented by: Sodium Chloride (Saline Flush) 10 ml FLUSH ASDIRECTED PRN PRN Reason: Keep Vein Open Last Admin: 04/08/20 13:47 Dose: 10 ml Documented by: Discontinued Medications Acetaminophen (Tylenol) 650 mg PO Q4H PRN PRN Reason: Fever Greater Than 101 Aspirin (Halfprin) 81 mg PO DAILY [facility] Dexamethasone (Decadron) 6 mg IVPUSH DAILY [facility] Stop: 04/17/20 09:01 Last Admin: 04/08/20 13:43 Dose: 6 mg Documented by: Enoxaparin Sodium (Lovenox) 40 mg SUBCUT DAILY [facility] Remdesivir 200 mg/ Sodium (Chloride) 250 mls @ 250 mls/hr IV ONETIME ONE Stop: 04/08/20 14:59 Last Admin: 04/08/20 14:16 Dose: 250 mls/hr Documented by: Remdesivir 100 mg/ Sodium (Chloride) 100 mls @ 100 mls/hr IV Q24H [facility] Stop: 04/12/20 14:59 Last Admin: 04/12/20 13:02 Dose: 100 mls/hr Documented by: Levothyroxine Sodium (Synthroid) 175 mcg PO DAILY [facility] Last Admin: 04/13/20 08:04 Dose: 175 mcg Documented by: Metoprolol Tartrate (Lopressor) 25 mg PO BID [facility] Last Admin: 04/10/20 20:42 Dose: 25 mg Documented by: Metoprolol Tartrate (Lopressor) 12.5 mg PO BID [facility] Last Admin: 04/11/20 20:22 Dose: 12.5 mg Documented by: Potassium Chloride (Klor-Con M20) 40 meq PO ONETIME ONE Stop: 04/09/20 11:01 Last Admin: 04/09/20 13:24 Dose: 40 meq Documented by: - Exam Quality Assessment: Supplemental Oxygen, DVT Prophylaxis General: Alert, Oriented, Cooperative, Mild Distress Lungs: Clear to Auscultation, Normal Respiratory Effort Cardiovascular: Regular Rate, Regular Rhythm, No Murmurs GI/Abdominal Exam: Soft, Non-Tender, No Organomegaly, No Distention Extremities: Non-Tender, No Pedal Edema Sepsis Event Note - Evaluation Sepsis Screening Result: No Definite Risk - Focused Exam Vital Signs: Vital Signs Temp Pulse Resp BP BP Pulse Ox 04/14/20 11:00 97.8 F 65 18 110/50 L 96 04/14/20 07:31 94 L 04/14/20 07:26 97.7 F 54 L 18 140/58 L 95 04/14/20 02:37 97.7 F 77 20 144/62 H 95 04/14/20 01:00 92 L - Problem List Review Problem List Initiated/Reviewed/Updated: Yes - My Orders Last 24 Hours: My Active Orders 04/13/20 12:16 Patient Status [ADT] Routine 04/15/20 05:00 BASIC METABOLIC PANEL,BMP [CHEM] Timed - Plan Plan:: ASSESSMENT AND PLAN - Pneumonia due to COVID-19 infection-complicated by acute respiratory failure with hypoxia. Overall improved over the past few days, slowly requiring less supplemental oxygen to maintain adequate oxygen saturation. -Supplemental oxygen -Symptomatic management -Dexamethasone 6 mg daily for 10 days (start 04/08) -Remdesivir x5 days, completed -Convalescent plasma x3 days (complete) -Isolation Paroxysmal atrial fibrillation-currently in sinus rhythm. Essential hypertension-blood pressure acceptable but she has been bradycardic. -Discontinue metoprolol Maintenance issues - - DVT prophylaxis -enoxaparin BID - GI prophylaxis -not indicated - Nutrition -regular diet Disposition -anticipate discharge home after the hospital stay Primary care physician - Rae Devine NP
[2020-04-14] MEDS: Dexamethasone 2 MG Tab PO SCH (12:51)
[2020-04-14] MEDS: Aspirin 81 MG Tab.EC PO SCH (20:23)
[2020-04-15] MEDS: Levothyroxine 25 MCG Tab PO SCH (07:38)
[2020-04-15] MEDS: Levothyroxine 100 MCG Tab PO SCH (07:38)
[2020-04-15] MEDS: Enoxaparin 40 MG/0.4 ML Syringe SUBCUT SCH ×2 (08:02→20:41)
--- NOTE | 2020-04-15 12:15 | PCM.PN ---
- General Info Date of Service: 04/15/20 Subjective Update: Ms. Perla has shown further improvement in respiratory status over the last 24 hours. Currently on 2 to 3 L of oxygen per minute via nasal cannula. Overall appetite and energy level have improved. Functional Status: Reports: Tolerating Diet, Ambulating, Urinating - Review of Systems General: Reports: Weakness, Fatigue. Denies: Fever, Chills Pulmonary: Reports: Shortness of Breath. Denies: Pleuritic Chest Pain, Cough, Sputum, Hemoptysis, Wheezing Cardiovascular: Reports: Dyspnea on Exertion. Denies: Chest Pain, Palpitations, Orthopnea, PND, Edema, Lightheadedness Gastrointestinal: Reports: No Symptoms - Patient Data Vitals - Most Recent: Last Vital Signs Temp 96.4 F L 04/15/20 11:05 Pulse 73 04/15/20 11:05 Resp 146 H 04/15/20 11:05 BP 126/60 04/15/20 11:05 Pulse Ox 93 L 04/15/20 11:05 Weight - Most Recent: 332 lb I&O - Last 24 Hours: Intake & Output 04/14/20 04/15/20 04/15/20 22:59 06:59 14:59 Intake Total 550 500 Output Total 400 700 Balance 550 100 -700 Lab Results Last 24 Hours: Laboratory Results - last 24 hr 04/15/20 Range/Units 06:13 Sodium 137 L (140-148) mmol/L Potassium 4.4 (3.6-5.2) mmol/L Chloride 102 (100-108) mmol/L Carbon Dioxide 28 (21-32) mmol/L Anion Gap 11.4 (5.0-14.0) mmol/L BUN 15 (7-18) mg/dL Creatinine 0.8 (0.6-1.0) mg/dL Est Cr Clr Drug Dosing 73.63 mL/min Estimated GFR (MDRD) > 60 (>60) Glucose 260 H (74-106) mg/dL Calcium 8.6 (8.5-10.1) mg/dL Med Orders - Current: Current Medications Acetaminophen (Tylenol) 650 mg PO Q4H PRN PRN Reason: Pain (Mild 1-3)/fever Last Admin: 04/08/20 19:57 Dose: 650 mg Documented by: Aspirin (Halfprin) 81 mg PO BEDTIME [facility] Last Admin: 04/14/20 20:23 Dose: 81 mg Documented by: Benzocaine/Menthol (Cepacol Sore Throat) 1 lozenge MUCMEM Q1H PRN PRN Reason: Sore Throat Last Admin: 04/09/20 02:24 Dose: 1 elijah Documented by: Benzonatate (Tessalon Perles) 100 mg PO TID PRN PRN Reason: Cough Dexamethasone (Dexamethasone) 6 mg PO Q24H [facility] Stop: 04/17/20 13:01 Last Admin: 04/14/20 12:51 Dose: 6 mg Documented by: Enoxaparin Sodium (Lovenox) 40 mg SUBCUT BID [facility] Last Admin: 04/15/20 08:02 Dose: 40 mg Documented by: Guaifenesin/Dextromethorphan (Robitussin Dm) 10 ml PO Q4H PRN PRN Reason: Cough Last Admin: 04/10/20 05:47 Dose: 10 ml Documented by: Levothyroxine Sodium (Levothyroxine) 75 mcg PO ACBREAKFAST [facility] Last Admin: 04/15/20 07:38 Dose: 75 mcg Documented by: Levothyroxine Sodium (Synthroid) 100 mcg PO ACBREAKFAST [facility] Last Admin: 04/15/20 07:38 Dose: 100 mcg Documented by: Magnesium Hydroxide (Milk Of Magnesia) 30 ml PO Q12H PRN PRN Reason: Constipation Last Admin: 04/12/20 08:53 Dose: 30 ml Documented by: Melatonin (Melatonin) 9 mg PO BEDTIME PRN PRN Reason: Sleep Ondansetron HCl (Zofran) 4 mg IV Q6H PRN PRN Reason: Nausea/Vomiting Ondansetron HCl (Zofran Odt) 4 mg PO Q6H PRN PRN Reason: Nausea able to take PO Prochlorperazine Maleate (Compazine) 10 mg PO Q6H PRN PRN Reason: Nausea/Vomiting Senna/Docusate Sodium (Senna Plus) 1 tab PO BID PRN PRN Reason: Constipation Last Admin: 04/12/20 21:17 Dose: 1 tab Documented by: Sodium Chloride (Saline Flush) 10 ml FLUSH ASDIRECTED PRN PRN Reason: Keep Vein Open Last Admin: 04/08/20 13:47 Dose: 10 ml Documented by: Discontinued Medications Acetaminophen (Tylenol) 650 mg PO Q4H PRN PRN Reason: Fever Greater Than 101 Aspirin (Halfprin) 81 mg PO DAILY [facility] Dexamethasone (Decadron) 6 mg IVPUSH DAILY [facility] Stop: 04/17/20 09:01 Last Admin: 04/08/20 13:43 Dose: 6 mg Documented by: Enoxaparin Sodium (Lovenox) 40 mg SUBCUT DAILY [facility] Remdesivir 200 mg/ Sodium (Chloride) 250 mls @ 250 mls/hr IV ONETIME ONE Stop: 04/08/20 14:59 Last Admin: 04/08/20 14:16 Dose: 250 mls/hr Documented by: Remdesivir 100 mg/ Sodium (Chloride) 100 mls @ 100 mls/hr IV Q24H [facility] Stop: 04/12/20 14:59 Last Admin: 04/12/20 13:02 Dose: 100 mls/hr Documented by: Levothyroxine Sodium (Synthroid) 175 mcg PO DAILY [facility] Last Admin: 04/13/20 08:04 Dose: 175 mcg Documented by: Metoprolol Tartrate (Lopressor) 25 mg PO BID [facility] Last Admin: 04/10/20 20:42 Dose: 25 mg Documented by: Metoprolol Tartrate (Lopressor) 12.5 mg PO BID [facility] Last Admin: 04/11/20 20:22 Dose: 12.5 mg Documented by: Potassium Chloride (Klor-Con M20) 40 meq PO ONETIME ONE Stop: 04/09/20 11:01 Last Admin: 04/09/20 13:24 Dose: 40 meq Documented by: - Exam Quality Assessment: Supplemental Oxygen, DVT Prophylaxis General: Alert, Oriented, Cooperative, Mild Distress Lungs: Clear to Auscultation, Normal Respiratory Effort Cardiovascular: Regular Rate, Regular Rhythm, No Murmurs GI/Abdominal Exam: Soft, Non-Tender, No Organomegaly, No Distention Extremities: Non-Tender, No Pedal Edema Sepsis Event Note - Evaluation Sepsis Screening Result: No Definite Risk - Focused Exam Vital Signs: Vital Signs Temp Pulse Resp BP Pulse Ox 04/15/20 11:05 96.4 F L 73 146 H 126/60 93 L 04/15/20 07:43 95 04/15/20 07:18 98.2 F 48 L 20 139/60 93 L 04/15/20 02:41 98.2 F 51 L 18 151/53 H 93 L 04/15/20 01:45 91 L - Problem List Review Problem List Initiated/Reviewed/Updated: Yes - Plan Plan:: ASSESSMENT AND PLAN - Pneumonia due to COVID-19 infection-complicated by acute respiratory failure with hypoxia. Overall improved over the past few days, slowly requiring less supplemental oxygen to maintain adequate oxygen saturation. -Supplemental oxygen -Symptomatic management -Dexamethasone 6 mg daily for 10 days (start 04/08) -Remdesivir x5 days, completed -Convalescent plasma x3 days (complete) -Isolation Paroxysmal atrial fibrillation-currently in sinus rhythm. Essential hypertension-blood pressure acceptable but she has been bradycardic. -Discontinue metoprolol Maintenance issues - - DVT prophylaxis -enoxaparin BID - GI prophylaxis -not indicated - Nutrition -regular diet Disposition -anticipate discharge home, possibly tomorrow Primary care physician - Rae Devine NP
[2020-04-15] MEDS: Dexamethasone 2 MG Tab PO SCH (13:11)
[2020-04-15] MEDS: Aspirin 81 MG Tab.EC PO SCH (20:41)
[2020-04-16] MEDS: Levothyroxine 100 MCG Tab PO SCH (07:35)
[2020-04-16] MEDS: Levothyroxine 25 MCG Tab PO SCH (07:35)
[2020-04-16 07:41] VITALS: BP 124/55; PULSE 50
[2020-04-16] MEDS: Enoxaparin 40 MG/0.4 ML Syringe SUBCUT SCH (08:46)
--- NOTE | 2020-04-16 10:55 | PCM.DCSUM1 ---
Discharge Summary - Hospital Course Brief History: Ms. Perla is a 60-year-old woman who was admitted through the emergency department with cough, shortness of breath, hypoxia, secondary to COVID-19 and bilateral pneumonia. - Discharge Data Discharge Date: 04/16/20 Discharge Disposition: Home, Self-Care 01 Condition: Fair - Referral to Home Health Primary Care Physician: PCP None - Discharge Diagnosis/Problem(s) (1) COVID-19 SNOMED Code(s): 179406025 ICD Code: U07.1 - COVID-19 Status: Acute Current Visit: No (2) Pneumonia due to COVID-19 virus SNOMED Code(s): 778948719800344020 ICD Code: U07.1 - COVID-19; J12.89 - OTHER VIRAL PNEUMONIA Status: Acute Current Visit: Yes (3) Acute respiratory failure with hypoxia SNOMED Code(s): 98324880, 131478227 ICD Code: J96.01 - ACUTE RESPIRATORY FAILURE WITH HYPOXIA Status: Acute Current Visit: Yes (4) Paroxysmal atrial fibrillation SNOMED Code(s): 236484914 ICD Code: I48.0 - PAROXYSMAL ATRIAL FIBRILLATION Status: Chronic Current Visit: Yes - Patient Summary/Data Hospital Course: Ms. Perla presented to the emergency room with 8 days of progressive symptoms including cough, shortness of breath, weakness, extreme fatigue. She has had a steady decline in her respiratory status to the point that she is short of breath with any activity. She has a regular dry nonproductive cough. She has intermittent headaches, nasal congestion, mild sore throat as well as diffuse myalgias. She has had nausea but has not had any vomiting. She was seen in the emergency room about 5 days ago and labs and vital signs were okay at that time. Work-up in the emergency room revealed leukopenia and borderline thrombocytopenia. COVID-19 testing was positive. D-dimer is moderately elevated. She is hypoxic and requiring supplemental oxygen. She did receive dexamethasone and remdesivir in the emergency room. She is going to be admitted to the Covid unit for further management. On admission fluids were limited and she was continued on the dexamethasone and remdesivir, convalescent plasma was also added as management. Overnight she did experience further decline in her respiratory status and was transferred to the intensive care unit for further management. She received high flow oxygen while in the ICU and over the next several days experience gradual improvement in hypoxia. She was also treated aggressively with anticoagulation Lovenox 40 mg subcu twice daily. At the time of discharge she continues to require supplemental oxygen but was eager to be discharged home. She had documented oxygen saturation of 83% while ambulating on 3 L of oxygen per minute via nasal cannula. She will remain on Lovenox 40 mg subcu daily for an additional 6 days. Activity will be as tolerated and she will resume her usual diet. Follow-up appointment will be scheduled with her primary care provider within 1 week. - Patient Instructions Diet: Usual Diet as Tolerated Activity: As Tolerated Other/Special Instructions: Please arrange for home oxygen 3 L/min via nasal cannula. Please schedule follow-up appointment with primary care provider within 1 week. - Discharge Plan Prescriptions/Med Rec: Enoxaparin [Lovenox] 40 mg SUBCUT DAILY #6 syringe Home Medications: Home Meds Leola's Wort 150 mg PO DAILY 04/12/15 [History] Aspirin [Halfprin] 81 mg PO DAILY 03/02/17 [History] Levothyroxine 175 mcg PO DAILY 08/27/17 [History] Enoxaparin [Lovenox] 40 mg SUBCUT DAILY #6 syringe 04/16/20 [Rx] Oxygen Therapy Mode: Nasal Cannula Oxygen Flow Rate (L/min): 3 Patient Handouts: Enoxaparin injection Referrals: Kierra Devine CNM [Mid-] - 04/23/20 3:15 pm (Your appointment will be a virtual appointment through your [facility] My Chart. You will receives instructions on upcoming appointment through your My Chart.) - Discharge Summary/Plan Comment DC Time >30 min.: No - Patient Data Vitals - Most Recent: Last Vital Signs Temp 97.5 F 04/16/20 07:40 Pulse 50 L 04/16/20 07:40 Resp 18 04/16/20 07:40 BP 124/55 L 04/16/20 07:40 Pulse Ox 93 L 04/16/20 07:55 Weight - Most Recent: 332 lb I&O - Last 24 hours: Intake & Output 04/15/20 04/16/20 04/16/20 22:59 06:59 14:59 Intake Total 500 Output Total 150 600 800 Balance -150 -100 -800 Med Orders - Current: Current Medications Acetaminophen (Tylenol) 650 mg PO Q4H PRN PRN Reason: Pain (Mild 1-3)/fever Last Admin: 04/08/20 19:57 Dose: 650 mg Documented by: Aspirin (Halfprin) 81 mg PO BEDTIME [facility] Last Admin: 04/15/20 20:41 Dose: 81 mg Documented by: Benzocaine/Menthol (Cepacol Sore Throat) 1 lozenge MUCMEM Q1H PRN PRN Reason: Sore Throat Last Admin: 04/09/20 02:24 Dose: 1 elijah Documented by: Benzonatate (Tessalon Perles) 100 mg PO TID PRN PRN Reason: Cough Dexamethasone (Dexamethasone) 6 mg PO Q24H [facility] Stop: 04/17/20 13:01 Last Admin: 04/15/20 13:11 Dose: 6 mg Documented by: Enoxaparin Sodium (Lovenox) 40 mg SUBCUT BID [facility] Last Admin: 04/16/20 08:46 Dose: 40 mg Documented by: Guaifenesin/Dextromethorphan (Robitussin Dm) 10 ml PO Q4H PRN PRN Reason: Cough Last Admin: 04/10/20 05:47 Dose: 10 ml Documented by: Levothyroxine Sodium (Levothyroxine) 75 mcg PO ACBREAKFAST [facility] Last Admin: 04/16/20 07:35 Dose: 75 mcg Documented by: Levothyroxine Sodium (Synthroid) 100 mcg PO ACBREAKFAST [facility] Last Admin: 04/16/20 07:35 Dose: 100 mcg Documented by: Magnesium Hydroxide (Milk Of Magnesia) 30 ml PO Q12H PRN PRN Reason: Constipation Last Admin: 04/12/20 08:53 Dose: 30 ml Documented by: Melatonin (Melatonin) 9 mg PO BEDTIME PRN PRN Reason: Sleep Ondansetron HCl (Zofran) 4 mg IV Q6H PRN PRN Reason: Nausea/Vomiting Ondansetron HCl (Zofran Odt) 4 mg PO Q6H PRN PRN Reason: Nausea able to take PO Prochlorperazine Maleate (Compazine) 10 mg PO Q6H PRN PRN Reason: Nausea/Vomiting Senna/Docusate Sodium (Senna Plus) 1 tab PO BID PRN PRN Reason: Constipation Last Admin: 04/12/20 21:17 Dose: 1 tab Documented by: Sodium Chloride (Saline Flush) 10 ml FLUSH ASDIRECTED PRN PRN Reason: Keep Vein Open Last Admin: 04/08/20 13:47 Dose: 10 ml Documented by: Discontinued Medications Acetaminophen (Tylenol) 650 mg PO Q4H PRN PRN Reason: Fever Greater Than 101 Aspirin (Halfprin) 81 mg PO DAILY [facility] Dexamethasone (Decadron) 6 mg IVPUSH DAILY [facility] Stop: 04/17/20 09:01 Last Admin: 04/08/20 13:43 Dose: 6 mg Documented by: Enoxaparin Sodium (Lovenox) 40 mg SUBCUT DAILY [facility] Remdesivir 200 mg/ Sodium (Chloride) 250 mls @ 250 mls/hr IV ONETIME ONE Stop: 04/08/20 14:59 Last Admin: 04/08/20 14:16 Dose: 250 mls/hr Documented by: Remdesivir 100 mg/ Sodium (Chloride) 100 mls @ 100 mls/hr IV Q24H [facility] Stop: 04/12/20 14:59 Last Admin: 04/12/20 13:02 Dose: 100 mls/hr Documented by: Levothyroxine Sodium (Synthroid) 175 mcg PO DAILY [facility] Last Admin: 04/13/20 08:04 Dose: 175 mcg Documented by: Metoprolol Tartrate (Lopressor) 25 mg PO BID [facility] Last Admin: 04/10/20 20:42 Dose: 25 mg Documented by: Metoprolol Tartrate (Lopressor) 12.5 mg PO BID [facility] Last Admin: 04/11/20 20:22 Dose: 12.5 mg Documented by: Potassium Chloride (Klor-Con M20) 40 meq PO ONETIME ONE Stop: 04/09/20 11:01 Last Admin: 04/09/20 13:24 Dose: 40 meq Documented by: - Exam Quality Assessment: Reports: DVT Prophylaxis General: Reports: Alert, Oriented, Cooperative, Mild Distress Lungs: Reports: Clear to Auscultation, Normal Respiratory Effort Cardiovascular: Reports: Regular Rate, Regular Rhythm, No Murmurs GI/Abdominal Exam: Soft, Non-Tender, No Organomegaly, No Distention Extremities: Non-Tender, No Pedal Edema
== END 2020-04-16 12:16 | disposition home or self-care (01) | DRG 177 ==
LOC: JP.ED 12:34 → JP.2SS 16:53 → JP.ICU 04-09 09:32 → JP.2SS 04-13 15:17
PROVIDERS: ADMIT Internal Medicine; ATTEND Hospitalist
PROC: XW033E5 Introduction of Remdesivir Anti-infective into Peripheral Vein, Percutaneous Approach, New Technology Group 5 (ICD-10-PCS; principal; 2020-04-08)
PROC: XW13325 Transfusion of Convalescent Plasma (Nonautologous) into Peripheral Vein, Percutaneous Approach, New Technology Group 5 (ICD-10-PCS; 2020-04-08)
PROC: 8E0ZXY6 Isolation (ICD-10-PCS; 2020-04-08)
PROC: 5A0945A Assistance with Respiratory Ventilation, 24-96 Consecutive Hours, High Flow/Velocity Cannula (ICD-10-PCS; 2020-04-08)
DX: U07.1 COVID-19 (principal); J12.89 Other viral pneumonia; J96.01 Acute respiratory failure with hypoxia; I48.0 Paroxysmal atrial fibrillation; D69.6 Thrombocytopenia, unspecified; D72.819 Decreased white blood cell count, unspecified; R79.1 Abnormal coagulation profile; H54.7 Unspecified visual loss; E78.00 Pure hypercholesterolemia, unspecified; I10 Essential (primary) hypertension; K59.09 Other constipation; M81.0 Age-related osteoporosis without current pathological fracture; F32.9 Major depressive disorder, single episode, unspecified; E03.9 Hypothyroidism, unspecified; E66.9 Obesity, unspecified; M17.0 Bilateral primary osteoarthritis of knee; M16.0 Bilateral primary osteoarthritis of hip; R00.1 Bradycardia, unspecified; Z87.01 Personal history of pneumonia (recurrent); Z98.890 Other specified postprocedural states; Z79.82 Long term (current) use of aspirin; Z79.890 Hormone replacement therapy; Z79.899 Other long term (current) drug therapy; Z88.8 Allergy status to other drugs, medicaments and biological substances
CPT/HCPCS: 36415; 36430; 36600; 71045; 71045-26; 80048; 80053; 80076; 82728; 82803; 83605; 83615; 84145; 84484; 85025; 85027; 85379; 86140; 86900; 86901; 94762; 96365; 99285; 99285-25; A9270-GY; J1100; J1650; J7050; J8540; P9017

== ENCOUNTER 2020-04-23 12:06 | Emergency (ER) | payer OTHER ==
[2020-04-23 12:11] VITALS: BP 150/72; PULSE 94
--- NOTE | 2020-04-23 13:59 | EDM.PDOC ---
ED HPI GENERAL MEDICAL PROBLEM - General Chief Complaint: Cardiovascular Problem Stated Complaint: MEDICAL [facility]IA [facility] Time Seen by Provider: 04/23/20 13:00 Source of Information: Reports: Patient, RN History Limitations: Reports: No Limitations - History of Present Illness INITIAL COMMENTS - FREE TEXT/NARRATIVE: 60-year-old female recently in the hospital with a serious problem with Covid and related symptoms. She has now been home and gradually getting better but still gets very short of breath with any kind of activity and today had a tachycardia attached to it. It slowed down to the time that I saw her here in the emergency department. She has been off of her metoprolol since she was in the hospital and 80 at the stage where time to reinstitute. Her exam today did not show any rales in her chest and her rate was down about 90 on my exam time. She is given half of a 25 metoprolol here in the department and discharged to follow-up with her physician Onset: Today Duration: Week(s): Location: Reports: Other (Her whole body is weak) Severity: Severe Improves with: Reports: Rest Worsens with: Reports: Movement Context: Reports: Activity Associated Symptoms: Reports: No Other Symptoms, Shortness of Breath - Related Data Allergies Allergy/AdvReac Type Severity Reaction Status Date / Time ranitidine HCl [From Zantac] Allergy Severe Difficulty Verified 04/23/20 12:10 Breathing caffeine Allergy Tachycardia Verified 04/23/20 12:10 Home Meds: Home Meds Leola's Wort 150 mg PO DAILY 04/12/15 [History] Aspirin [Halfprin] 81 mg PO DAILY 03/02/17 [History] Levothyroxine 175 mcg PO DAILY 08/27/17 [History] Enoxaparin [Lovenox] 40 mg SUBCUT DAILY #6 syringe 04/16/20 [Rx] Metoprolol Tartrate [Lopressor] 25 mg PO BID 04/23/20 [History] hydroCHLOROthiazide [Hydrochlorothiazide] 25 mg PO DAILY 04/23/20 [History] Past Medical History HEENT History: Reports: Impaired Vision Cardiovascular History: Reports: Afib, Heart Murmur, High Cholesterol, Hypertension Respiratory History: Reports: Bronchitis, Recurrent, Pneumonia, Recurrent Gastrointestinal History: Reports: Chronic Constipation, Other (See Below) Other Gastrointestinal History: "gallbladder attacks" 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 Musculoskeletal History: Reports: Osteoporosis Psychiatric History: Reports: Depression, Panic Attack Endocrine/Metabolic History: Reports: Hypothyroidism, Obesity/BMI 30+ Hematologic History: Reports: None Immunologic History: Reports: None Oncologic (Cancer) History: Reports: None Dermatologic History: Reports: Psoriasis - Infectious Disease History Infectious Disease History: Reports: Chicken Pox - Past Surgical History Head Surgeries/Procedures: Reports: None HEENT Surgical History: Reports: Oral Surgery Cardiovascular Surgical History: Reports: None Respiratory Surgical History: Reports: None GI Surgical History: Reports: None Female Surgical History: Reports: None Endocrine Surgical History: Reports: None Other Endocrine Surgeries/Procedures: radiation via pill form february 2015 Musculoskeletal Surgical History: Reports: Other (See Below) Other Musculoskeletal Surgeries/Procedures:: arthritis in right knee and hips, rt lower leg surgery, left foot surgery Oncologic Surgical History: Reports: None Dermatological Surgical History: Reports: None Social & Family History - Family History Family Medical History: No Pertinent Family History - Tobacco Use Tobacco Use Status *Q: Never Tobacco User - Caffeine Use Caffeine Use: Reports: None Caffeine Use Comment: caffeine allergy ED ROS GENERAL - Review of Systems Review Of Systems: See Below Constitutional: Reports: Malaise, Weakness, Fatigue HEENT: Reports: No Symptoms Respiratory: Reports: Shortness of Breath, Cough Cardiovascular: Reports: Dyspnea on Exertion Endocrine: Reports: Fatigue GI/Abdominal: Reports: Decreased Appetite : Reports: No Symptoms Musculoskeletal: Reports: Other (Body pain) Skin: Reports: No Symptoms ED EXAM, GENERAL - Physical Exam Exam: See Below Exam Limited By: No Limitations General Appearance: Alert, Anxious, Mild Distress Ears: Normal External Exam Nose: Normal Inspection Throat/Mouth: Normal Inspection Head: Atraumatic Neck: Normal Inspection Respiratory/Chest: No Respiratory Distress, Lungs Clear, No Accessory Muscle Use Cardiovascular: Regular Rate, Rhythm, No Edema GI/Abdominal: Normal Bowel Sounds, Other (Large abdomen) Extremities: Normal Inspection, No Pedal Edema Neurological: Alert, Oriented, Normal Cognition Psychiatric: Normal Affect Skin Exam: Warm, Dry, Intact Course - Vital Signs Text/Narrative:: Discharge to add her metoprolol and continue to rest while she recovers Last Recorded V/S: Last Vital Signs Temp 36.8 C 04/23/20 12:07 Pulse 94 04/23/20 12:07 Resp 15 04/23/20 12:07 BP 150/72 H 04/23/20 12:07 Pulse Ox 93 L 04/23/20 12:07 Departure - Departure Time of Disposition: 13:57 Disposition: Home, Self-Care 01 Condition: Good Clinical Impression: Tachycardia, Short of breath on exertion Instructions: COVID-19 Frequently Asked Questions, Supraventricular Tachycardia, Adult, [id number], Shortness of Breath, Adult, [id number], Coronavirus Information 08/04/19 Referrals: PCP,None [Primary Care Provider] - Forms: ED Department Discharge Additional Instructions: Start taking metoprolol 1/2 tablet or 25 mg daily and perhaps increase to twice daily pending discussion with your PMD and return here for continuing or new or worse symptoms Sepsis Event Note (ED) - Evaluation Sepsis Screening Result: No Definite Risk - Focused Exam Vital Signs: Vital Signs Temp Pulse Resp BP Pulse Ox 04/23/20 12:07 36.8 C 94 15 150/72 H 93 L
== END 2020-04-23 14:17 | disposition home or self-care (01) ==
LOC: JP.ED 12:06
DX: R06.02 Shortness of breath (principal); R00.0 Tachycardia, unspecified; I48.91 Unspecified atrial fibrillation; I10 Essential (primary) hypertension; E03.9 Hypothyroidism, unspecified; E66.9 Obesity, unspecified; Z68.43 Body mass index [BMI] 50.0-59.9, adult; Z88.8 Allergy status to other drugs, medicaments and biological substances; Z79.82 Long term (current) use of aspirin; Z79.899 Other long term (current) drug therapy; Z79.01 Long term (current) use of anticoagulants
CPT/HCPCS: 99285

== ENCOUNTER 2020-05-04 17:31 | Emergency (ER) | payer OTHER ==
[2020-05-04 18:32] VITALS: BP 134/80; PULSE 69
[2020-05-04] MEDS ORDERED: Ketorolac 30 MG/ML SDV IM ONE (18:32)
[2020-05-04] MEDS ORDERED: Ondansetron 4 MG Tab.DIS PO ONE (18:32)
--- NOTE | 2020-05-04 18:36 | EDM.PDOC ---
ED HPI GENERAL MEDICAL PROBLEM - General Chief Complaint: Abdominal Pain Stated Complaint: PAIN UNDER RIGHT RIB CAGE AND ABD Time Seen by Provider: 05/04/20 18:19 Source of Information: Reports: Patient, RN Notes Reviewed History Limitations: Reports: No Limitations - History of Present Illness INITIAL COMMENTS - FREE TEXT/NARRATIVE: 60-year-old female presents emergency department a complaint of right upper quadrant pain, she has had difficulty with her gallbladder in the past however it has been quiet for some time. Last night she woke up with right upper quadrant pain that has not resolved throughout the day. She notices no change with food she is still passing gas normal bowel movements does have some nausea Right Upper Abdomen Pain Score (Numeric/FACES): 7 - Related Data Allergies Allergy/AdvReac Type Severity Reaction Status Date / Time ranitidine HCl [From Zantac] Allergy Severe Difficulty Verified 04/23/20 12:10 Breathing caffeine Allergy Tachycardia Verified 04/23/20 12:10 [id number] Reductase Allergy Difficulty Verified 05/04/20 18:08 Inhibitor Breathing Home Meds: Home Meds Aspirin [Halfprin] 81 mg PO DAILY 03/02/17 [History] Levothyroxine 175 mcg PO DAILY 08/27/17 [History] Metoprolol Tartrate [Lopressor] 25 mg PO BID 04/23/20 [History] hydroCHLOROthiazide [Hydrochlorothiazide] 25 mg PO DAILY 04/23/20 [History] Past Medical History HEENT History: Reports: Impaired Vision Cardiovascular History: Reports: Afib, Heart Murmur, High Cholesterol, Hypertension Respiratory History: Reports: Bronchitis, Recurrent, Pneumonia, Recurrent Gastrointestinal History: Reports: Chronic Constipation, Other (See Below) Other Gastrointestinal History: "gallbladder attacks" [employer]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 Musculoskeletal History: Reports: Osteoporosis Psychiatric History: Reports: Depression, Panic Attack Endocrine/Metabolic History: Reports: Hypothyroidism, Obesity/BMI 30+ Hematologic History: Reports: None Immunologic History: Reports: None Oncologic (Cancer) History: Reports: None Dermatologic History: Reports: Psoriasis - Infectious Disease History Infectious Disease History: Reports: Chicken Pox, Other (See Below) Other Infectious Disease History: covid - Past Surgical History Head Surgeries/Procedures: Reports: None HEENT Surgical History: Reports: Oral Surgery Cardiovascular Surgical History: Reports: None Respiratory Surgical History: Reports: None GI Surgical History: Reports: None Female Surgical History: Reports: None Endocrine Surgical History: Reports: None Other Endocrine Surgeries/Procedures: radiation via pill form february 2015 Musculoskeletal Surgical History: Reports: Other (See Below) Other Musculoskeletal Surgeries/Procedures:: arthritis in right knee and hips, rt lower leg surgery, left foot surgery Oncologic Surgical History: Reports: None Dermatological Surgical History: Reports: None Social & Family History - Family History Family Medical History: No Pertinent Family History - Tobacco Use Tobacco Use Status *Q: Never Tobacco User - Caffeine Use Caffeine Use: Reports: None Caffeine Use Comment: caffeine allergy - Recreational Drug Use Recreational Drug Use: No ED ROS GENERAL - Review of Systems Review Of Systems: See Below Constitutional: Reports: No Symptoms HEENT: Reports: No Symptoms Respiratory: Reports: No Symptoms Cardiovascular: Reports: No Symptoms GI/Abdominal: Reports: Abdominal Pain, Flatus, Nausea. Denies: Constipation, Diarrhea, Vomiting ED EXAM, GI/ABD - Physical Exam Exam: See Below Exam Limited By: No Limitations General Appearance: Alert, WD/WN, No Apparent Distress Respiratory/Chest: No Respiratory Distress, Lungs Clear, Normal Breath Sounds, No Accessory Muscle Use, Chest Non-Tender Cardiovascular: Regular Rate, Rhythm, No Murmur GI/Abdominal Exam: Normal Bowel Sounds, Soft, Tender (Right upper quadrant pain) Course - Vital Signs Last Recorded V/S: Last Vital Signs Temp 98.8 F 05/04/20 18:06 Pulse 69 05/04/20 18:31 Resp 18 05/04/20 18:06 BP 134/80 05/04/20 18:31 Pulse Ox 92 L 05/04/20 18:31 - Orders/Labs/Meds Orders: Active Orders 24 hr Category Date Time Status Abdomen 1V Upright [CR] Urgent Exams 05/04/20 18:33 Ordered Labs: Laboratory Tests 05/04/20 05/04/20 05/04/20 Range/Units 18:47 18:47 18:47 WBC 7.6 (4.5-11.0) K/uL RBC 4.67 (3.30-5.50) M/uL Hgb 13.5 (12.0-15.0) g/dL Hct 41.7 (36.0-48.0) % MCV 89 (80-98) fL MCH 29 (27-31) pg MCHC 32 (32-36) % Plt Count 261 (150-400) K/uL Neut % (Auto) 63 (36-66) % Lymph % (Auto) 22 L (24-44) % [place] % (Auto) 12 H (2-6) % Eos % (Auto) 2 (2-4) % Baso % (Auto) 1 (0-1) % Sodium 139 L (140-148) mmol/L Potassium 3.5 L (3.6-5.2) mmol/L Chloride 100 (100-108) mmol/L Carbon Dioxide 31 (21-32) mmol/L Anion Gap 11.5 (5.0-14.0) mmol/L BUN 13 (7-18) mg/dL Creatinine 1.1 H (0.6-1.0) mg/dL Est Cr Clr Drug Dosing 55.55 mL/min Estimated GFR (MDRD) 51 L (>60) Glucose 112 H (74-106) mg/dL Lactic Acid 0.9 (0.4-2.0) mmol/L Calcium 9.5 (8.5-10.1) mg/dL Total Bilirubin 0.4 (0.2-1.0) mg/dL AST 18 (15-37) U/L ALT 30 (12-78) U/L Alkaline Phosphatase 68 (46-116) U/L Total Protein 6.7 (6.4-8.2) g/dL Albumin 3.0 L (3.4-5.0) g/dL Globulin 3.7 H (2.3-3.5) g/dL Albumin/Globulin Ratio 0.8 L (1.2-2.2) Meds: Medications Discontinued Medications Generic Name Dose Route Start Last Admin Trade Name Ashley PRN Reason Stop Dose Admin Ketorolac Tromethamine 30 mg 05/04/20 18:32 05/04/20 18:40 Toradol IM 05/04/20 18:33 30 mg ONETIME ONE Administration Ondansetron HCl 4 mg 05/04/20 18:32 05/04/20 18:40 Zofran Odt PO 05/04/20 18:33 4 mg ONETIME ONE Administration Departure - Departure Time of Disposition: 19:35 Disposition: Home, Self-Care 01 Condition: Fair Clinical Impression: Abdominal pain Qualifiers: Abdominal location: right upper quadrant Qualified Code(s): R10.11 - Right upper quadrant pain - Discharge Information Instructions: Abdominal Pain, Adult, [id number] Referrals: Kierra Devine CNM [Primary Care Provider] - Forms: ED Department Discharge Additional Instructions: Continue to use ibuprofen or Tylenol as needed for pain control, please keep your follow-up appointment with your primary care this week, call or return to the emergency department worsening symptoms. Sepsis Event Note (ED) - Evaluation Sepsis Screening Result: No Definite Risk - Focused Exam Vital Signs: Vital Signs Temp Pulse Resp BP Pulse Ox 05/04/20 18:31 69 134/80 92 L 05/04/20 18:06 98.8 F 80 18 161/89 H 96 05/04/20 17:43 98.8 F 80 18 161/89 H 96 - My Orders Last 24 Hours: My Active Orders 05/04/20 18:33 Abdomen 1V Upright [CR] Urgent - Assessment/Plan Last 24 Hours: My Active Orders 05/04/20 18:33 Abdomen 1V Upright [CR] Urgent Plan: Assessment Acuity = acute Site and laterality = abdominal pain right upper quadrant Etiology = unknown Manifestations = none Location of injury = Home Lab values = CBC, CMP unremarkable urinalysis unremarkable plain film the abdomen does show some stool on the right side nonspecific bowel gas pattern Plan I did review lab work with her as well as EKG results she had good relief from the Toradol. We did contact about possibility of further imaging such as CT scan or ultrasound she declined at this time is going to do watchful waiting she will follow-up with her primary care for further evaluation This note was dictated using [employer] voice recognition software please call with any questions on syntax or grammar.
--- NOTE | 2020-05-05 09:08 | CR ---
Abdomen 1V Upright CLINICAL HISTORY: Right upper quadrant pain FINDINGS: Small intestinal configuration is nonacute. No free air is identified. There is moderate stool throughout the colon. There is patchy density in both lung bases IMPRESSION: Nonacute intestinal gas pattern Moderate fecal retention Patchy bibasal densities are suspect for pneumonia. If clinically relevant, 2 view chest is recommended
== END 2020-05-04 19:53 | disposition home or self-care (01) ==
LOC: JP.ED 17:31
DX: R10.11 Right upper quadrant pain (principal); I48.91 Unspecified atrial fibrillation; I10 Essential (primary) hypertension; E03.9 Hypothyroidism, unspecified; E66.9 Obesity, unspecified; Z88.8 Allergy status to other drugs, medicaments and biological substances; Z79.82 Long term (current) use of aspirin; Z79.899 Other long term (current) drug therapy; Z68.43 Body mass index [BMI] 50.0-59.9, adult
CPT/HCPCS: 36415; 74018; 80053; 83605; 85025; 96372; 99284; A9270; J1885; 99283

== ENCOUNTER 2020-11-24 11:47 | Emergency (ER) | payer BC, OTHER ==
--- NOTE | 2020-11-24 12:44 | EDM.PDOC ---
ED HPI GENERAL MEDICAL PROBLEM - General Chief Complaint: Neurological Problem Stated Complaint: DROOPY LEFT EYE, NUMBNESS ON LEFT SIDE OF FACE Time Seen by Provider: 11/24/20 12:15 Source of Information: Reports: Patient History Limitations: Reports: No Limitations - History of Present Illness INITIAL COMMENTS - FREE TEXT/NARRATIVE: 60-year-old female who is been having issues with left-sided facial numbness, some puffiness and slight weakness around her left eye and left side of her mouth for the past week. She also feels that she has had some generalized increased edema in her lower extremities and general weight gain. She has been exposed to ticks but denies any fevers or chills, denies shortness of breath or chest pains. She has no headache. This morning she woke up and the puffiness around her left eye seems somewhat worse so she called the clinic to be seen and they sent her to the emergency room. No abdominal symptoms, no nausea or vomiting, her appetite is good. When she arrived her vitals are normal. Onset: Gradual Duration: Day(s): (Symptoms have been slowly worsening for 7 days) Location: Reports: Face Improves with: Reports: None Worsens with: Reports: None Associated Symptoms: Reports: Other (Weight gain and mild increased peripheral edema). Denies: Fever/Chills, Headaches, Malaise, Rash, Shortness of Breath - Related Data Allergies Allergy/AdvReac Type Severity Reaction Status Date / Time ranitidine HCl [From Zantac] Allergy Severe Difficulty Verified 11/24/20 11:52 Breathing caffeine Allergy Tachycardia Verified 11/24/20 11:52 Bzxxhnc-Fva-Ios Reductase Allergy Difficulty Verified 11/24/20 11:52 Inhibitor Breathing Home Meds: Home Meds Aspirin [Halfprin] 81 mg PO DAILY 03/02/17 [History] Levothyroxine 175 mcg PO DAILY 08/27/17 [History] Metoprolol Tartrate [Lopressor] 25 mg PO BID 04/23/20 [History] hydroCHLOROthiazide [Hydrochlorothiazide] 25 mg PO DAILY 04/23/20 [History] Past Medical History HEENT History: Reports: Impaired Vision Cardiovascular History: Reports: Afib, Heart Murmur, High Cholesterol, Hypertens ion Respiratory History: Reports: Bronchitis, Recurrent, Pneumonia, Recurrent Gastrointestinal History: Reports: Chronic Constipation, Other (See Below) Other Gastrointestinal History: "gallbladder attacks" 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 Musculoskeletal History: Reports: Osteoporosis Psychiatric History: Reports: Depression, Panic Attack Endocrine/Metabolic History: Reports: Hypothyroidism, Obesity/BMI 30+ Hematologic History: Reports: None Immunologic History: Reports: None Oncologic (Cancer) History: Reports: None Dermatologic History: Reports: Psoriasis - Infectious Disease History Infectious Disease History: Reports: Chicken Pox, Novel Coronavirus Other Infectious Disease History: covid - Past Surgical History Head Surgeries/Procedures: Reports: None HEENT Surgical History: Reports: Oral Surgery Cardiovascular Surgical History: Reports: None Respiratory Surgical History: Reports: None GI Surgical History: Reports: None Female Surgical History: Reports: None Endocrine Surgical History: Reports: None Other Endocrine Surgeries/Procedures: radiation via pill form february 2015 Musculoskeletal Surgical History: Reports: Other (See Below) Other Musculoskeletal Surgeries/Procedures:: arthritis in right knee and hips, rt lower leg surgery, left foot surgery Oncologic Surgical History: Reports: None Dermatological Surgical History: Reports: None Social & Family History - Family History Family Medical History: No Pertinent Family History - Caffeine Use Caffeine Use: Reports: None Caffeine Use Comment: caffeine allergy ED ROS GENERAL - Review of Systems Review Of Systems: See Below Constitutional: Denies: Fever, Malaise HEENT: Reports: Other (Some puffiness and weakness around the left eye, also some facial numbness and drooping of the left corner of the mouth) Respiratory: Reports: No Symptoms Cardiovascular: Reports: No Symptoms GI/Abdominal: Reports: No Symptoms. Denies: Abdominal Pain, Constipation, Diarrhea, Vomiting : Reports: No Symptoms Musculoskeletal: Reports: No Symptoms (Denies any joint pain or swelling) Skin: Denies: Rash Neurological: Reports: Paresthesia (Numbness of the left side of the face, no symptoms below the neck of weakness or paresthesias) Psychiatric: Reports: No Symptoms ED EXAM, GENERAL - Physical Exam Exam: See Below Free Text/Narrative:: Generally speaking with the patient she does appear to have some slight weakness around the left eye and some slight drooping of the left corner of the mouth but her speech is rapid, fluent, and she has no expressive aphasia or dysarthria Exam Limited By: No Limitations General Appearance: Alert, No Apparent Distress Eye Exam: Right Eye: Periorbital Changes (Minimal periorbital edema and weakness of the periorbital muscles), Bilateral Eye: EOMI, PERRL Ears: Normal TMs Throat/Mouth: Other (Slight droop of the left corner of the mouth at rest, however her smile looks complete, tongue is midline) Respiratory/Chest: No Respiratory Distress, Lungs Clear Cardiovascular: Regular Rate, Rhythm. No: Extra Beats GI/Abdominal: Soft, Non-Tender Extremities: Other (Just a trace of ankle edema which is symmetric) Neurological: Alert, Oriented, No Motor/Sensory Deficits (Other than above facial findings, there are no peripheral findings of the extremities of weakness or numbness, no asymmetry or lack of coordination) Psychiatric: Normal Affect, Normal Mood Course - Vital Signs Last Recorded V/S: Last Vital Signs Temp 98 F 11/24/20 12:01 Pulse 49 L 11/24/20 13:30 Resp 14 11/24/20 13:30 BP 135/64 11/24/20 13:30 Pulse Ox 95 11/24/20 13:30 - Orders/Labs/Meds Orders: Active Orders 24 hr Category Date Time Status HUMAN GRANULOCYTIC RAVEN-HGE Urgent Lab 11/24/20 12:39 Received Labs: Laboratory Tests 11/24/20 11/24/20 11/24/20 Range/Units 12:39 12:39 12:39 WBC 6.4 (4.5-11.0) K/uL RBC 4.48 (3.30-5.50) M/uL Hgb 13.7 (12.0-15.0) g/dL Hct 40.9 (36.0-48.0) % MCV 91 (80-98) fL MCH 31 (27-31) pg MCHC 34 (32-36) % Plt Count 251 (150-400) K/uL Neut % (Auto) 72.7 H (36-66) % Lymph % (Auto) 16.5 L (24-44) % [place] % (Auto) 8.1 H (2-6) % Eos % (Auto) 2.2 (2-4) % Baso % (Auto) 0.5 (0-1) % Sodium 143 (140-148) mmol/L Potassium 3.6 (3.6-5.2) mmol/L Chloride 103 (100-108) mmol/L Carbon Dioxide 29 (21-32) mmol/L Anion Gap 11.4 (5.0-14.0) mmol/L BUN 12 (7-18) mg/dL Creatinine 0.9 (0.6-1.0) mg/dL Est Cr Clr Drug Dosing 65.45 mL/min Estimated GFR (MDRD) > 60 (>60) Glucose 107 H (74-106) mg/dL Calcium 8.7 (8.5-10.1) mg/dL Total Bilirubin 0.5 (0.2-1.0) mg/dL AST 20 (15-37) U/L ALT 24 (12-78) U/L Alkaline Phosphatase 68 (46-116) U/L Total Protein 6.3 L (6.4-8.2) g/dL Albumin 3.1 L (3.4-5.0) g/dL Globulin 3.2 (2.3-3.5) g/dL Albumin/Globulin Ratio 1.0 L (1.2-2.2) Lyme Disease IgG Ab Negative (Negative) Lyme Disease IgM Ab Negative (Negative) - Re-Assessments/Exams Free Text/Narrative Re-Assessment/Exam: 11/24/20 12:46 This patient has not had labs in a while and has been diagnosed with "borderline diabetes" in the past. She also has had tick exposure. 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 11/24/20 13:58 Patient's lab work was all normal, Lyme's is negative. 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 She will return in 2 to 3 days if not improving, or anytime if worsening such as increased symptoms, headache or fever. Departure - Departure Time of Disposition: 14:00 Disposition: Home, Self-Care 01 Clinical Impression: Harper's palsy - Discharge Information Instructions: Harper Palsy, Adult Referrals: Kierra Devine CNM [Primary Care Provider] - Forms: ED Department Discharge Care Plan Goals: Take 6 pills of prednisone with your first food of the day for the next 3 to 5 days. Return anytime if worsening such as headache, fever, increased symptoms especially if spreading to the arms or legs. Otherwise consider rechecking in 3 to 4 days if not improving satisfactorily. Sepsis Event Note (ED) - Evaluation Sepsis Screening Result: No Definite Risk - Focused Exam Vital Signs: Vital Signs Temp Pulse Resp BP Pulse Ox 11/24/20 13:30 49 L 14 135/64 95 11/24/20 12:01 98 F 70 15 135/60 97 11/24/20 11:58 98 F 70 15 135/60 97 - My Orders Last 24 Hours: My Active Orders 11/24/20 12:39 HUMAN GRANULOCYTIC RAVEN-HGE Urgent - Assessment/Plan Last 24 Hours: My Active Orders 11/24/20 12:39 HUMAN GRANULOCYTIC RAVEN-HGE Urgent
[2020-11-24 13:31] VITALS: BP 135/64; PULSE 49
[2020-11-29 14:11] LABS: HGE IGG TITER Negative (Neg:<1:64); HGE IGM TITER Negative (Neg:<1:20)
== END 2020-11-24 14:05 | disposition home or self-care (01) ==
LOC: JP.ED 11:47
DX: G51.0 Bell's palsy (principal); I10 Essential (primary) hypertension; E78.00 Pure hypercholesterolemia, unspecified; E03.9 Hypothyroidism, unspecified; E66.9 Obesity, unspecified; Z68.43 Body mass index [BMI] 50.0-59.9, adult; Z88.8 Allergy status to other drugs, medicaments and biological substances; Z79.82 Long term (current) use of aspirin; Z79.899 Other long term (current) drug therapy
CPT/HCPCS: 36415; 80053; 85025; 86618; 86666; 99284